=== PATIENT | male | born 1950 | race Caucasian/White ===

== ENCOUNTER → 2022-06-24 07:22 | Outpatient (CLI) | payer MEDICARE, SELFPAY ==
[2022-06-24 10:03] LABS: Alanine Aminotransferase 21 IU/L (<50); Albumin 3.9 g/dL (3.5-5.0); Albumin Globulin Ratio 1.5 (1.0-2.8); Alkaline Phosphatase 79 U/L (38-126); Aspartate Aminotransferase 24 IU/L (17-59); Bilirubin Total 1.2 mg/dL (0.2-1.3); Blood Urea Nitrogen 12 mg/dL (9-20); Calcium 8.6 mg/dL (8.4-10.2); Carbon Dioxide 28 mmol/L (22-32); Chloride 104 mmol/L (98-107); Cholesterol 143 mg/dL (140-199); Estimated Glomerular Filt Rate > 60 mL/min (>60); Globulin 2.6 g/dL (1.7-4.1); Glucose 92 mg/dL (80-110); HDL Cholesterol 36 mg/dL (40-60); HEMOLYSIS < 15 (0-50); LDL Cholesterol Calculated 84 mg/dL (<100); Potassium 3.7 mmol/L (3.4-5.1); Sodium 139 mmol/L (137-145); Total Protein 6.5 g/dL (6.3-8.2); Triglycerides 114 mg/dL (35-150)
[2022-06-24 10:26] LABS: Prostate Specific Antigen < 0.064 ng/mL (0.10-4.00)
[2022-06-24 10:29] LABS: Thyroid Stimulating Hormone 0.111 uIU/mL (0.47-4.68)
== END ==
PROVIDERS: PCP Family Medicine; Referring Provider Family Medicine; Visit Provider Family Medicine
DX: E78.5 Hyperlipidemia, unspecified (principal); I10 Essential (primary) hypertension; N40.0 Benign prostatic hyperplasia without lower urinary tract symptoms
CPT/HCPCS: 36415; 80053; 80061; 84153; 84439; 84443

== ENCOUNTER 2022-10-19 18:44 | Emergency (ER) | payer MEDICARE, SELFPAY ==
[2022-10-19 19:16] VITALS: BP 162/82; PULSE 65; RESP 16; TEMP 36.4; O2SAT 97; BMI 32.8
--- NOTE | 2022-10-19 19:29 | DI.US.S_ITS ---
PROCEDURE: US PERIPH VENOUS LOW EXTREM LT INDICATIONS: EDEMA TECHNIQUE: Real-time imaging, as well as color and pulse Doppler interrogation, were performed of the lower extremity deep veins from the inguinal ligament to the popliteal fossa. COMPARISON: None. FINDINGS: The common femoral, femoral and popliteal veins are normally compressible, and free of intraluminal thrombus. Color and pulse Doppler demonstrate normal phasic intraluminal flow. There is normal augmentation response to distal compression maneuver. IMPRESSION: 1. No evidence of deep venous thrombosis in the left lower extremity. Dictated by: Severino Pugh M.D. on 10/19/2022 at 20:02 Approved by: Severino Pugh M.D. on 10/19/2022 at 20:04
--- NOTE | 2022-10-19 20:23 | ED.EXTPRO ---
HPI - Extremity Problem General Chief complaint: Extremity Problem,Nontraumatic Stated complaint: sent by [facility]/swollen leg and foot Time Seen by Provider: 10/19/22 19:46 Source: patient Mode of arrival: Ambulatory History of Present Illness HPI Narrative: Patient is a 72-year-old male who was sent to the emergency department from the walk-in clinic for evaluation of swelling to his left leg. He denies any trauma. He is on warfarin secondary to cardiac issues. He states that he really did not notice that his leg was swollen until his pointed out to him a couple days ago. He denies chest pain or shortness of breath. Has never had a blood clot in his legs before. No discomfort in his leg. No skin changes in his leg. Related Data Home Medications Medication Instructions Recorded Confirmed cholecalciferol (vitamin D3) 50 50 mcg PO DAILY 06/21/22 06/21/22 mcg (2,000 unit) capsule magnesium oxide 250 mg PO DAILY 06/21/22 06/21/22 metoprolol succinate 100 mg 100 mg PO BID 06/21/22 06/21/22 tablet,extended release 24 hr aziptvro-duk-ebcuz-vit K-lycop PO 06/21/22 06/21/22 [One-A-Day Men's 50 Plus(vit K)] warfarin 5 mg tablet 5 mg PO 06/21/22 06/21/22 Previous Rx's Medication Instructions Recorded eplerenone 50 mg tablet 50 mg PO DAILY #90 tabs 06/27/22 levothyroxine 200 mcg tablet 200 mcg PO DAILY #90 tabs 06/27/22 levothyroxine 25 mcg tablet 25 mcg PO DAILY #90 tabs 06/27/22 tamsulosin 0.4 mg capsule 0.4 mg PO BEDTIME #90 caps 06/27/22 oxybutynin chloride 10 mg 10 mg PO DAILY #90 tabs 07/28/22 tablet,extended release 24 hr Allergies Allergy/AdvReac Type Severity Reaction Status Date / Time No Known Drug Allergies Allergy Unverified 06/21/22 11:08 Review of Systems Constitutional Constitutional: Reports system reviewed and no additional complaints, except as documented Cardiovascular Cardiovascular: Reports system reviewed and no additional complaints, except as documented Respiratory Respiratory: Reports system reviewed and no additional complaints, except as documented Musculoskeletal Musculoskeletal: Reports system reviewed and no additional complaints, except as documented Integumentary/Breasts Skin/Breast: Reports system reviewed and no additional complaints, except as documented Neurologic Neurologic: Reports system reviewed and no additional complaints, except as documented Patient History Medical History Anxiety (~1984) Atrial fibrillation (~2001) BPH (benign prostatic hyperplasia) Chicken pox (~1956) Deep vein thrombosis (~2001) Depression (~1984) Eczema (~1967) Hand cramps (~2021) Hearing loss (~2009) History of elevated PSA (~2008) History of squamous cell carcinoma History of thyroid cancer (~2001) Hypothyroidism Measles (~1957) Mumps (~1959) Sleep apnea (~2009) Vertigo (~2019) Wears glasses Surgical History (Updated 07/04/22 @ 20:07 by Kandy Li) Anesthesia H/O mitral valve repair (~2001) History of aortic valve repair (~2014) History of bariatric surgery (~07/30/17) History of hernia repair (~1970) History of lymph node excision (~05/06/18) History of prostate cancer (~2008) History of radical prostatectomy (~08/31/10) History of thyroidectomy (~05/03/02) Family History (Updated 07/04/22 @ 20:11 by Kandy Li) Father History of heart disease Hypertension Mother Breast cancer Stroke Sister Breast cancer Grandmother Breast cancer Grandfather Arteriosclerosis Grandmother History of heart disease Social History Smoking Status: Never smoker Smoking Status: Never smoker alcohol intake frequency: holidays/special occasions only Substance Use Type: does not use Exam Initial Vital Signs Initial Vital Signs: Vital Signs Temperature 97.6 F 10/19/22 19:16 Pulse Rate 65 10/19/22 19:16 Respiratory Rate 16 10/19/22 19:16 Blood Pressure 162/82 H 10/19/22 19:16 Pulse Oximetry 97 10/19/22 19:16 Oxygen Delivery Method Room Air 10/19/22 19:16 Resp Effort & Inspection: normal respiratory effort Cardio Rate: regular rate Skin General: no rashes or lesions noted Neuro General: patient alert, patient awake and moves all extremities Extrem Other: Patient does circumferential swelling to the left lower extremity that extends from the top of his foot until his knee. Potentially some swelling above the knee. No redness. It is not pitting edema. Course Orders Ordered: ED Orders 10/19/22 19:29 US periph venous low extrem lt Stat Vital Signs Vital signs: Vital Signs - 8 hr 10/19/22 19:16 Temperature 97.6 F Pulse Rate 65 Respiratory Rate 16 Blood Pressure 162/82 H Pulse Oximetry 97 Oxygen Delivery Method Room Air MDM - Extremity (Nontraumatic) Imaging Data US - DVT: Radiologist's Impression: PROCEDURE:? US PERIPH VENOUS LOW EXTREM LT ? INDICATIONS:? EDEMA ? TECHNIQUE:? Real-time imaging, as well as color and pulse Doppler interrogation, were performed of the lower extremity deep veins from the inguinal ligament to the popliteal fossa.? ? COMPARISON:? None. ? FINDINGS:? The common femoral, femoral and popliteal veins are normally compressible, and free of intraluminal thrombus.? Color and pulse Doppler demonstrate normal phasic intraluminal flow.? There is normal augmentation response to distal compression maneuver. ? ? IMPRESSION:? ? 1. No evidence of deep venous thrombosis in the left lower extremity. [facility] Narrative Medical decision making narrative: His physical exam is not consistent with cellulitis. He denies any specific trauma. Ultrasounds negative for DVT. He is currently on warfarin. He has no chest pain or shortness of breath. No further workup required in the emergency department. We did discuss things that he can try to include keeping his leg elevated potentially compression stockings and to contact his primary doctor for follow-up as he may need further evaluation if his symptoms do not improve. He was given return precautions. He expressed understanding and agreement. Discharge Plan Departure Patient Disposition: Home Clinical Impression: Peripheral edema, Atrial fibrillation Instructions: DI for Peripheral Edema-Unilateral Activity Restrictions/Additional Instructions: I do recommend that you try to keep your leg elevated. You can also try other conservative measures such as compression stockings. Contact your primary doctor for a follow-up. Return to the emergency department for new or worsening symptoms. Prescriptions: No Action levothyroxine 25 mcg tablet 25 mcg PO DAILY Qty: 90 2RF levothyroxine 200 mcg tablet 200 mcg PO DAILY Qty: 90 2RF tamsulosin 0.4 mg capsule 0.4 mg PO BEDTIME Qty: 90 2RF eplerenone 50 mg tablet 50 mg PO DAILY Qty: 90 2RF oxybutynin chloride 10 mg tablet extended release 24hr 10 mg PO DAILY Qty: 90 1RF warfarin 5 mg tablet 5 mg PO Rx Instructions: 2.5 mg x5 days a week and 5 mg x 2 days a week. metoprolol succinate 100 mg tablet extended release 24 hr 100 mg PO BID Patient Comments: TAKE 2 TABLETS BY MOUTH DAILY uefljjob-ris-zombu-vit K-lycop [One-A-Day Men's 50 Plus] PO cholecalciferol (vitamin D3) 50 mcg (2,000 unit) capsule 50 mcg PO DAILY magnesium oxide 250 mg magnesium tablet 250 mg PO DAILY Referrals: Fidel Emanuel, [Primary Care Provider] - Stand Alone Forms: Patient Portal/API
== END 2022-10-19 20:31 | disposition home or self-care (01) ==
PROVIDERS: Emergency Provider Emergency Medicine; PCP Family Medicine
DX: R60.0 Localized edema (principal); I48.91 Unspecified atrial fibrillation; Z79.01 Long term (current) use of anticoagulants
CPT/HCPCS: 93971; 99281; 99283

== ENCOUNTER → 2022-11-04 09:14 | Outpatient (CLI) | payer MEDICARE, SELFPAY ==
--- NOTE | 2022-11-04 | DI.ECHO.S_ITS ---
[facility] +---------+ : : [address] : : : : [id number] : : : : Phone: [phone]+ Echocardiogram Report + + :Name: LISETTE REINA Study Date: 11/04/2022 Height: 71 in : :[facility] ReadingLocation: Weight: 235 lb : : Gender: Male BSA: 2.3 m2 : :: 1950 Age: 72 yrs BP: 142/68 mmHg: :Reason For Study: Endocarditis : :Ordering Physician: CHICA, : :MARY Nolen Performed By: Anabell Gracia : :Referring: MARY BLEDSOE : + + Interpretation Summary The ejection fraction is estimated to be 55-60%. Diastolic function could not be accurately assessed due to confounding valvular disease. The left atrium is moderately dilated. The right ventricle is normal in size and function. There is a well-seated, normal functioning bioprosthetic mitral valve. There is trace aortic regurgitation. An annuloplasty ring is noted in the tricuspid position. Pulmonary artery pressures cannot be estimated because of the lack of a measurable TR jet velocity. The ascending aorta is mildly enlarged, 3.9 cm. Procedure: A two-dimensional transthoracic echocardiogram with color flow and Doppler was performed. The study quality was technically adequate. There is no prior echocardiogram noted for this patient. Left Ventricle: The left ventricle is normal in size. The ejection fraction is estimated to be 55-60%. Septal motion is consistent with post-operative state. Diastolic function could not be accurately assessed due to confounding valvular disease. Right Ventricle: The right ventricle is normal in size and function. Atria: The left atrium is moderately dilated. Right atrial size is normal. There is no Doppler evidence for an interatrial shunt. Mitral Valve: There is a bioprosthetic mitral valve. The prosthetic mitral valve is well-seated. The mitral valve mean gradient is 9 mmHg. Heart rate is variable due to underlying atrial flutter. There is no mitral regurgitation noted. Aortic Valve: The aortic valve is trileaflet. The aortic valve opens well. There is mild aortic valve sclerosis. There is no aortic valve stenosis. There is trace aortic regurgitation. Tricuspid Valve: The tricuspid valve is not well visualized. An annuloplasty ring is noted in the tricuspid position. There is trace tricuspid regurgitation. Pulmonary artery pressures cannot be estimated because of the lack of a measurable TR jet velocity. Pulmonic Valve: The pulmonic valve leaflets are thin and pliable; valve motion is normal. There is no pulmonic valvular stenosis. There is no pulmonic valvular regurgitation. Great Vessels: The aortic root is normal size. The ascending aorta is mildly enlarged. The pulmonary artery is normal size. The IVC is dilated (diameter is greater than 2.1 cm) and it collapses less than 50% with a sniff. This suggests a high right atrial pressure of 15 mm Hg. Pericardium/ Pleura There is no pericardial effusion. There is no pleural effusion. MMode/2D Measurements & Calculations LVIDd: 5.7 cm LVOT diam: 2.1 cm LVIDs: 3.5 cm Ao root diam: 3.4 cm FS: 38.6 % asc Aorta Diam: 3.9 cm IVSd: 1.0 cm LVPWd: 1.1 cm LV marques. diameter/BSA (cm/m^2): 2.5 LV sys. diameter/BSA (cm/m^2): 1.5 LA A2 area: 25.8 cm2 RA long axis: 6.2 cm LA A4 area: 24.5 cm2 RA area: 19.8 cm2 LA length (vol): 6.4 cm RA vol: 53.9 ml LA vol: 83.4 ml RA : 23.9 ml/m2 LA vol index: 36.9 ml/m2 IVC diam: 2.2 cm RVD1 (basal): 3.9 cm LVLs ap4: 7.2 cm LVLd ap2: 8.3 cm TAPSE_phl: 1.9 cm LVLs ap2: 7.1 cm Doppler Measurements & Calculations Ao V2 max: 148.0 cm/sec TR max christie: 213.0 cm/sec Ao V2 mean: 100.0 cm/sec TR max P.1 mmHg Ao max P.0 mmHg PA V2 max: 102.0 cm/sec Ao mean P.0 mmHg PA V2 mean: 72.3 cm/sec Ao V2 VTI: 31.4 cm PA mean P.0 mmHg PA pr(Accel): 20.9 mmHg MV V2 mean: 131.3 cm/sec TV mean P.0 mmHg MV mean P.3 mmHg MV V2 VTI: 69.8 cm Reading Physician:03:10 PM
== END ==
PROVIDERS: PCP Family Medicine; Referring Provider Internal Medicine Cardiovascular Disease; Visit Provider Internal Medicine Cardiovascular Disease
DX: Z95.2 Presence of prosthetic heart valve; I35.8 Other nonrheumatic aortic valve disorders; I77.89 Other specified disorders of arteries and arterioles
CPT/HCPCS: 93306

== ENCOUNTER 2023-01-23 22:18 | Emergency (ER) | payer MEDICARE, SELFPAY ==
--- NOTE | 2023-01-23 22:19 | ED.GENADULT ---
HPI - General Adult General Chief complaint: Upper Respiratory Symptoms Stated complaint: covid exposure/would like testing Time Seen by Provider: 01/23/23 22:19 History of Present Illness HPI narrative: 72-year-old male nonsmoker with history of hypothyroid, aortic valve replacement presents requesting to be tested for COVID. He denies any symptoms, specifically stating he has no headache, runny nose or sore throat. He has no chest pain, shortness of breath or cough. He denies any fatigue or body aches. He states that he has been with his daily and she has been hospitalized with both COVID and bacterial pneumonia, he wanted to be checked to make sure he does not have COVID himself. Related Data Home Medications Medication Instructions Recorded Confirmed cholecalciferol (vitamin D3) 50 50 mcg PO DAILY 06/21/22 11/28/22 mcg (2,000 unit) capsule magnesium oxide 250 mg PO DAILY 06/21/22 11/28/22 metoprolol succinate 100 mg 100 mg PO BID 06/21/22 11/28/22 tablet,extended release 24 hr luchraot-amf-rbful-vit K-lycop PO 06/21/22 11/28/22 [One-A-Day Men's 50 Plus(vit K)] warfarin 5 mg tablet 2.5 mg PO for heart 11/29/22 Previous Rx's Medication Instructions Recorded eplerenone 50 mg tablet 50 mg PO DAILY #90 tabs 06/27/22 oxybutynin chloride 10 mg 10 mg PO DAILY #90 tabs 12/02/22 tablet,extended release 24 hr levothyroxine 200 mcg tablet 200 mcg PO DAILY #90 tabs 12/26/22 levothyroxine 25 mcg tablet 25 mcg PO DAILY #90 tabs 12/26/22 tamsulosin 0.4 mg capsule 0.4 mg PO BEDTIME #90 caps 12/26/22 nirmatrelvir 300 mg (150 mg See Rx Instructions PO .COMPLEX 01/07/23 x2)-ritonavir 100 mg tablet,dose #30 ea pack (Paxlovid) Allergies Allergy/AdvReac Type Severity Reaction Status Date / Time No Known Drug Allergies Allergy Unverified 11/28/22 16:23 Review of Systems Review of Systems Narrative: GENERAL: Denies chills, fatigue, malaise, fever, sweats. HEENT: Denies sinus pain, ear pain, sore throat, difficulty swallowing, dizziness. RESPIRATORY: Denies dyspnea, cough, wheezing, hemoptysis, sputum. CARDIOVASCULAR: Denies chest pain, palpitations, orthopnea, edema, GASTROINTESTINAL: Denies nausea, vomiting, abdominal pain, diarrhea, constipation, melena. : Denies dysuria, frequency, incontinence, hematuria, urinary retention. MUSCULOSKELETAL: denies weakness, joint pain, or bony pain SKIN: Denies rash, skin lesions, or other NEUROLOGIC: Denies weakness, headache, numbness, change in speech, confusion, seizures, incoordination. PSYCHIATRIC: No concerning psychosocial issues. 12 point review of systems is negative except for those stated above Patient History Medical History Anxiety (~1984) Atrial fibrillation (~2001) BPH (benign prostatic hyperplasia) Chicken pox (~1956) Deep vein thrombosis (~2001) Depression (~1984) Eczema (~1967) Hand cramps (~2021) Hearing loss (~2009) History of elevated PSA (~2008) History of squamous cell carcinoma History of thyroid cancer (~2001) Hypothyroidism Measles (~1957) Mumps (~1959) Preventative health care Sleep apnea (~2009) Vertigo (~2019) Wears glasses Surgical History Anesthesia H/O mitral valve repair (~2001) History of aortic valve repair (~2014) History of bariatric surgery (~07/30/17) History of hernia repair (~1970) History of lymph node excision (~05/06/18) History of prostate cancer (~2008) History of radical prostatectomy (~08/31/10) History of thyroidectomy (~05/03/02) Family History Father History of heart disease Hypertension Mother Breast cancer Stroke Sister Breast cancer Grandmother Breast cancer Grandfather Arteriosclerosis Grandmother History of heart disease Social History Smoking Status: Never smoker Smoking Status: Never smoker alcohol intake frequency: holidays/special occasions only Substance Use Type: does not use Exam Narrative Exam Narrative: GEN: AOx3 and in mild distress EYES: Pupils are equal, round, and reactive to light and accommodation. Extraoccular muscles are intact bilaterally. There is no subconjunctival hemorrhage or exudate. CHEST: Lungs are clear to auscultation bilaterally and free of wheezes, rales, or rhonchi. Heart rate is regular rhythm, there are no murmurs, clicks, rubs, or gallops. There is no chest wall tenderness. ABD: Abdomen is soft and nontender. There is no guarding or rebound. Bowel sounds are normal in all 4 quadrants. There is no mass or organomegaly. EXT: Full painless ROM of all extremities with no loss of sensation or strength. SKIN: Warm, pink, and dry. No erythema or rash Initial Vital Signs Initial Vital Signs: Vital Signs Temperature 98.6 F 01/23/23 22:23 Pulse Rate 71 01/23/23 22:23 Respiratory Rate 18 01/23/23 22:23 Blood Pressure 157/93 H 01/23/23 22:23 Pulse Oximetry 98 01/23/23 22:23 Oxygen Delivery Method Room Air 01/23/23 22:23 Course Orders Ordered: ED Orders 01/23/23 22:32 COVID19 -Nasal RAPID Stat Vital Signs Vital signs: Vital Signs - 8 hr 01/23/23 22:23 Temperature 98.6 F Pulse Rate 71 Respiratory Rate 18 Blood Pressure 157/93 H Pulse Oximetry 98 Oxygen Delivery Method Room Air Medical Decision Making Lab Data Labs: Lab Results 01/23/23 Range/Units 22:32 SARS-CoV-2 (PCR) Negative (Negative) MDM Narrative Medical decision making narrative: [72] year old patient presents with request for COVID test Prior Charts reviewed in our EMR Primary Historian: patient Labs reviewed and interpreted by myself: COVID negative Patient with reassuring history and physical exam and is asymptomatic, requesting only a COVID test due to his exposure to a person who was known to be positive. He has been around her for days on end and has no symptoms and a negative test. No further investigation needed Findings and discharge diagnosis discussed with patient/family followed by verbalization of understanding Return precautions discussed with patient/family whom verbalize understanding of diagnosis and plan Discharge Plan Departure Patient Disposition: Home Clinical Impression: Feared complaint without diagnosis Instructions: COVID-19 Activity Restrictions/Additional Instructions: *You have been diagnosed with [NEGATIVE COVID TEST ] *What to do: *Please continue to take your regular medications as directed. [ ] New medication prescriptions sent to your pharmacy: [ ] [ ] New medication written as a paper prescription [ ] No new medications given *Please follow up with your primary care provider in 2-3 days, call for an appointment. Let them know you were seen in the Emergency Department and that we ask that you be seen in follow up. We will electronically transmit a record of today's note if your PCP is in our system *If you do not have a primary care provider please contact the [facility] Resource line at [phone]. They will ask some questions about your medical history and help get you set up with a doctor in the community. *Return to Emergency Department if you should have any new, worsening or concerning symptoms, such as [fever greater than 101 F, shaking chills, worsening pain, persistent vomiting or other bothersome symptoms] Prescriptions: No Action eplerenone 50 mg tablet 50 mg PO DAILY Qty: 90 2RF warfarin 5 mg tablet 2.5 mg PO Patient Comments: 2.5 mg for five days a week, and 3.75 mg for two days a week. oxybutynin chloride 10 mg tablet extended release 24hr 10 mg PO DAILY Qty: 90 3RF levothyroxine 25 mcg tablet 25 mcg PO DAILY Qty: 90 2RF tamsulosin 0.4 mg capsule 0.4 mg PO BEDTIME Qty: 90 2RF levothyroxine 200 mcg tablet 200 mcg PO DAILY Qty: 90 2RF Paxlovid 300 mg (150 mg x 2)-100 mg tablets,dose pack See Rx Instructions PO .COMPLEX Qty: 30 0RF Rx Instructions: take TWO 150 mg tablets of nirmatrelvir with ONE 100 mg tablet of ritonavir twice daily for 5 days PO metoprolol succinate 100 mg tablet extended release 24 hr 100 mg PO BID Patient Comments: TAKE 2 TABLETS BY MOUTH DAILY vrnjiiyf-uqb-nevuj-vit K-lycop [One-A-Day Men's 50 Plus] PO cholecalciferol (vitamin D3) 50 mcg (2,000 unit) capsule 50 mcg PO DAILY magnesium oxide 250 mg magnesium tablet 250 mg PO DAILY Referrals: Fidel Emanuel, [Primary Care Provider] - Stand Alone Forms: Patient Portal/API
[2023-01-23 22:23] VITALS: BP 157/93; PULSE 71; RESP 18; TEMP 37; O2SAT 98; BMI 32.8
[2023-01-23 23:11] LABS: COVID19 -Nasal RAPID Negative (Negative)
== END 2023-01-23 23:26 | disposition home or self-care (01) ==
PROVIDERS: Emergency Provider Emergency Medicine; PCP Family Medicine
DX: Z20.822 Contact with and (suspected) exposure to COVID-19 (principal)
CPT/HCPCS: 87635; 99281; 99282; C9803

== ENCOUNTER → 2023-04-27 07:31 | Outpatient (CLI) | payer MEDICARE, SELFPAY ==
[2023-04-27 08:10] LABS: Add Manual Diff / Slide Review NO; Basophils Absolute Auto 0 /uL (0-100); Basophils Percent Auto 0.5 % (0-2); Eosinophils Absolute Auto 100 /uL (0-450); Eosinophils Percent Auto 1.8 % (2-4); Hematocrit 42.5 % (41-53); Hemoglobin 14.7 g/dL (13.5-17.5); Lymphocytes Absolute Auto 1100 /uL (1100-4500); Lymphocytes Percent Auto 19.5 % (25-40); Mean Corpuscular HGB Conc 34.6 % (30-36); Mean Corpuscular Hemoglobin 29.8 PG (26-34); Mean Corpuscular Volume 86.2 fL (80-100); Monocytes Absolute Auto 400 /uL (0-900); Monocytes Percent Auto 7.8 % (3-14); Neutrophils Absolute Auto 4000 /uL (1500-7000); Neutrophils Percent Auto 70.4 % (50-75); Platelet Count 115 X10^3/uL (150-400); Red Blood Cell Count 4.93 X10^6/uL (4.5-5.9); White Blood Cell Count 5.7 X10^3/uL (4.5-11.0)
[2023-04-27 08:29] LABS: Alanine Aminotransferase 19 IU/L (<50); Albumin 3.7 g/dL (3.5-5.0); Albumin Globulin Ratio 1.4 (1.0-2.8); Alkaline Phosphatase 78 U/L (38-126); Aspartate Aminotransferase 22 IU/L (17-59); BUN Creatinine Ratio 13.6 (6-22); Bilirubin Total 1.2 mg/dL (0.2-1.3); Blood Urea Nitrogen 9 mg/dL (9-20); Calcium 8.9 mg/dL (8.4-10.2); Carbon Dioxide 25 mmol/L (22-32); Chloride 106 mmol/L (98-107); Estimated Glomerular Filt Rate > 60 mL/min (>60); Globulin 2.6 g/dL (1.7-4.1); Glucose 98 mg/dL (80-110); HEMOLYSIS < 15 (0-50); Potassium 3.8 mmol/L (3.4-5.1); Sodium 139 mmol/L (137-145); Total Protein 6.3 g/dL (6.3-8.2)
[2023-04-27 08:57] LABS: Thyroid Stimulating Hormone < 0.015 uIU/mL (0.47-4.68)
== END ==
PROVIDERS: PCP Family Medicine; Referring Provider Family Medicine; Visit Provider Family Medicine
DX: I48.91 Unspecified atrial fibrillation (principal); Z85.850 Personal history of malignant neoplasm of thyroid; Z85.46 Personal history of malignant neoplasm of prostate
CPT/HCPCS: 36415; 80053; 84439; 84443; 85025

== ENCOUNTER → 2023-05-22 14:44 | Outpatient (CLI) | payer MEDICARE, SELFPAY ==
[2023-05-22 15:54] LABS: BUN Creatinine Ratio 14.3 (6-22); Blood Urea Nitrogen 10 mg/dL (9-20); Calcium 8.7 mg/dL (8.4-10.2); Carbon Dioxide 27 mmol/L (22-32); Chloride 104 mmol/L (98-107); Estimated Glomerular Filt Rate > 60 mL/min (>60); Glucose 109 mg/dL (80-110); HEMOLYSIS < 15 (0-50); Potassium 3.9 mmol/L (3.4-5.1); Sodium 141 mmol/L (137-145)
== END ==
PROVIDERS: PCP Family Medicine; Referring Provider Internal Medicine Cardiovascular Disease; Visit Provider Internal Medicine Cardiovascular Disease
DX: I10 Essential (primary) hypertension (principal)
CPT/HCPCS: 36415; 80048; 83735

== ENCOUNTER → 2023-07-31 09:19 | Outpatient (CLI) | payer MEDICARE, SELFPAY ==
[2023-07-31 10:55] LABS: Add Manual Diff / Slide Review NO; Basophils Absolute Auto 0 /uL (0-100); Basophils Percent Auto 0.4 % (0-2); Eosinophils Absolute Auto 100 /uL (0-450); Eosinophils Percent Auto 1.6 % (2-4); Hematocrit 42.4 % (41-53); Hemoglobin 14.8 g/dL (13.5-17.5); Lymphocytes Absolute Auto 1200 /uL (1100-4500); Mean Corpuscular HGB Conc 34.8 % (30-36); Mean Corpuscular Hemoglobin 29.7 PG (26-34); Mean Corpuscular Volume 85.3 fL (80-100); Monocytes Absolute Auto 500 /uL (0-900); Monocytes Percent Auto 8.7 % (3-14); Neutrophils Absolute Auto 4400 /uL (1500-7000); Neutrophils Percent Auto 70.3 % (50-75); Platelet Count 139 X10^3/uL (150-400); Red Blood Cell Count 4.97 X10^6/uL (4.5-5.9); Red Cell Distribution Width 14.2 % (11.6-14.8); White Blood Cell Count 6.3 X10^3/uL (4.5-11.0)
[2023-07-31 11:07] LABS: INR 3.2 (0.9-1.3); Prothrombin Time 37.3 SECONDS (9.4-12.5)
[2023-07-31 11:28] LABS: Alanine Aminotransferase 19 IU/L (<50); Albumin 4.1 g/dL (3.5-5.0); Albumin Globulin Ratio 1.6 (1.0-2.8); Alkaline Phosphatase 82 U/L (38-126); Aspartate Aminotransferase 23 IU/L (17-59); BUN Creatinine Ratio 18.9 (6-22); Blood Urea Nitrogen 14 mg/dL (9-20); Calcium 8.8 mg/dL (8.4-10.2); Carbon Dioxide 27 mmol/L (22-32); Chloride 108 mmol/L (98-107); Estimated Glomerular Filt Rate > 60 mL/min (>60); Globulin 2.6 g/dL (1.7-4.1); Glucose 113 mg/dL (80-110); HEMOLYSIS < 15 (0-50); Potassium 3.8 mmol/L (3.4-5.1); Sodium 138 mmol/L (137-145); Total Protein 6.7 g/dL (6.3-8.2)
[2023-07-31 11:33] LABS: Free T4, Direct Thyroxine 2.31 ng/dL (0.78-2.19)
[2023-07-31 11:48] LABS: Thyroid Stimulating Hormone < 0.015 uIU/mL (0.47-4.68)
== END ==
PROVIDERS: PCP Family Medicine; Referring Provider Family Medicine; Visit Provider Family Medicine
DX: Z01.812 Encounter for preprocedural laboratory examination (principal); I48.91 Unspecified atrial fibrillation; E03.9 Hypothyroidism, unspecified
CPT/HCPCS: 36415; 80053; 84439; 84443; 85025; 85610

== ENCOUNTER 2023-12-20 15:04 | Emergency (ER) | payer MEDICARE, SELFPAY ==
[2023-12-20 15:19] VITALS: BP 162/78; PULSE 85; RESP 16; TEMP 37.1; O2SAT 95; BMI 46.3
--- NOTE | 2023-12-20 15:24 | DI.CT.S_ITS ---
PROCEDURE: CT CERVICAL SPINE WO CON INDICATIONS: fall hit face head on thinners TECHNIQUE: Noncontrast 3 mm thick sections acquired from the skull base to the T4 level. Sagittal and coronal reformats were then constructed. For radiation dose reduction, the following was used: automated exposure control, adjustment of mA and/or kV according to patient size. COMPARISON: None. FINDINGS: Image quality: Excellent. Bones: No fractures or dislocations. Visualized superior ribs are intact. Cervical spondylosis. Disc osteophyte complex causes canal stenosis at C4-C5, and C5-C6. There is multilevel significant bony foraminal narrowing. Soft tissues: Prevertebral soft tissues are normal in thickness. No paravertebral hematomas. No apical pneumothoraces. Size right superior mediastinal lymph node, to the right of the esophagus is borderline abnormally enlarged, measuring 2.0 x 1.8 cm. Shotty bilateral cervical adenopathy. IMPRESSION: 1. No acute cervical fracture or dislocation. 2. Cervical spondylosis with canal stenosis and foraminal stenosis. 3. Borderline abnormally enlarged right superior mediastinal lymph node, nonspecific. Dictated by: Preston Guthrie M.D. on 12/20/2023 at 16:03 Approved by: Preston Guthrie M.D. on 12/20/2023 at 16:06
--- NOTE | 2023-12-20 15:24 | DI.CT.S_ITS ---
PROCEDURE: CT HEAD/BRAIN WO CON INDICATIONS: fall hit face head on thinners TECHNIQUE: Noncontrast 4.5 mm thick angled axial sections acquired from the foramen magnum to the vertex, with coronal and sagittal reformats. For radiation dose reduction, the following was used: automated exposure control, adjustment of mA and/or kV according to patient size. COMPARISON: None. FINDINGS: Image quality: Diagnostic. CSF spaces: Basal cisterns are patent. No extra-axial fluid collections. The ventricles are symmetric in size and shape. Brain: No intracranial bleeds or masses. There is cerebral volume loss for age, with resultant ventricular and sulcal prominence. There are periventricular and deep white matter chronic small vessel ischemic changes. There is intracranial internal carotid artery atherosclerosis. Skull and face: Calvarium and visualized facial bones appear intact, without suspicious lesions. Sinuses: Small air-fluid level, right maxillary sinus. Right maxillary sinus mucous retention cyst. IMPRESSION: 1. No acute intracranial pathology. 2. Acute right maxillary sinus disease. Dictated by: Preston Guthrie M.D. on 12/20/2023 at 16:01 Approved by: Preston Guthrie M.D. on 12/20/2023 at 16:03
--- NOTE | 2023-12-20 16:53 | ED.FALL ---
HPI - Fall <Jenae Jansen PA-C - Last Filed: 12/20/23 17:20> General Chief Complaint: Fall Stated Complaint: fell face 1st on concrete, on thinners Time Seen by Provider: 12/20/23 16:17 History of Present Illness HPI Narrative: Patient is a very pleasant 73-year-old male presents to the emergency room department today with complaints of facial pain, nose pain, left hand abrasion, right palmar abrasion, after falling off of the back of a trailer. Patient was attempting to strap down a Organ that he had just received from friend. He took a step lost his balance and ended up falling face down onto the cement. He put his right hand out to stop him, he sustained an abrasion to the palmar aspect of his right hand abrasion to the medial aspect 5th metacarpal and phalanx. He also sustained a abrasion across the nose and in between his eyebrows. There was no loss of consciousness. He did not break his glasses. He washed all the wounds prior to being seen here in the emergency department. Does not currently have any discomfort or pain. However the patient is currently on warfarin and presented to the emergency department for further evaluation since being on blood thinners. Related Data Home Medications Medication Instructions Recorded Confirmed cholecalciferol (vitamin D3) 50 50 mcg PO DAILY 06/21/22 11/10/23 mcg (2,000 unit) capsule tlmzzagu-ift-zrbqp-vit K-lycop PO 06/21/22 08/18/23 [One-A-Day Men's 50 Plus(vit K)] eplerenone 50 mg tablet 100 mg PO DAILY 11/10/23 metoprolol succinate 100 mg 100 mg PO DAILY 11/10/23 tablet,extended release 24 hr oxybutynin chloride 10 mg 5 mg PO DAILY 11/10/23 tablet,extended release 24 hr warfarin 2.5 mg tablet mg PO 11/10/23 11/10/23 Previous Rx's Medication Instructions Recorded tamsulosin 0.4 mg capsule 0.4 mg PO BEDTIME #90 caps 12/26/22 levothyroxine 200 mcg tablet 200 mcg PO DAILY #90 tabs 12/07/23 levothyroxine 25 mcg tablet 25 mcg PO DAILY #90 tabs 12/07/23 Allergies Allergy/AdvReac Type Severity Reaction Status Date / Time No Known Drug Allergies Allergy Unverified 11/10/23 11:33 Review of Systems <Jenae Jansen PA-C - Last Filed: 12/20/23 17:20> Review of Systems Narrative: Negative except as above Integumentary/Breasts Comments: Multiple skin abrasions 1 to the right palmar aspect of his hand, 1 along the medial aspect left hand along the 5th phalanx and middle carpals. And left wrist. And to the bridge of his nose and in between his eyebrows. Patient History <Jenae Jansen PA-C - Last Filed: 12/20/23 17:20> Medical History Leg edema Pre-diabetes Preoperative clearance Thrombocytopenia Preventative health care Wears glasses Eczema (~1967) Sleep apnea (~2009) Depression (~1984) Anxiety (~1984) Hand cramps (~2021) Mumps (~1959) Measles (~1957) Chicken pox (~1956) Vertigo (~2019) Hearing loss (~2009) History of elevated PSA (~2008) Deep vein thrombosis (~2001) Atrial fibrillation (~2001) History of thyroid cancer (~2001) History of squamous cell carcinoma BPH (benign prostatic hyperplasia) Hypothyroidism Surgical History Anesthesia History of lymph node excision (~05/06/18) History of radical prostatectomy (~08/31/10) History of thyroidectomy (~05/03/02) History of hernia repair (~1970) History of bariatric surgery (~07/30/17) History of prostate cancer (~2008) History of aortic valve repair (~2014) H/O mitral valve repair (~2001) Family History Father History of heart disease Hypertension Mother Breast cancer Stroke Sister Breast cancer Grandmother Breast cancer Grandfather Arteriosclerosis Grandmother History of heart disease Social History Smoking Status: Never smoker Smoking Status: Never smoker alcohol intake frequency: holidays/special occasions only Substance Use Type: does not use Exam <Jenae Jansen PA-C - Last Filed: 12/20/23 17:20> Initial Vital Signs Initial Vital Signs: Vital Signs Temperature 98.7 F 12/20/23 15:19 Pulse Rate 85 12/20/23 15:19 Respiratory Rate 16 12/20/23 15:19 Blood Pressure 162/78 H 12/20/23 15:19 Pulse Oximetry 95 12/20/23 15:19 Oxygen Delivery Method Room Air 12/20/23 15:19 Reviewed. Const General: cooperative, healthy appearing, comfortable, well developed, well groomed, No acute distress and No in distress Nutritional Appearance: average body habitus and well nourished [facility] Head: normal to inspection and normocephalic Face and sinus: abrasion (Abrasion to the bridge of the nose and in between his eyebrows.) Eyes General: Yes appearance normal, both eyes and all related structures Eyelids: eyelids normal Pupils: PERRL EOM: EOM intact bilaterally Neck Neck: normal visual inspection and full ROM Skin Other: Patient has an abrasion in between his eyebrows, abrasion on the bridge of his nose, mild soft tissue swelling to the bridge of his nose. He has an abrasion on the palmar aspect of his right hand, an abrasion to the left medial aspect of the hand and wrist area. Patient does not have any decreased range of motion, pulses are present, cap refill is preserved. He has no physical complaints of pain or discomfort. Neuro General: patient alert, patient awake, patient oriented x3 and gait normal Cognition: normal cognition Speech: speech normal Gait: normal gait Motor: muscle tone normal throughout Extrem Other: Range of motion, strength, pulses, cap refill preserved in the upper and lower extremities bilaterally. Psych Appearance: grossly normal and well kempt Mental Status: mental status grossly normal Speech and Movement: speech and movement normal Mood: congruent mood Affect: normal affect Attitude: cooperative Thought Process: normal Thought Content: normal Judgment: judgment good <Marilynn Ortega DO - Last Filed: 12/20/23 18:14> Initial Vital Signs Initial Vital Signs: Vital Signs Temperature 98.7 F 12/20/23 15:19 Pulse Rate 85 12/20/23 15:19 Respiratory Rate 16 12/20/23 15:19 Blood Pressure 162/78 H 12/20/23 15:19 Pulse Oximetry 95 12/20/23 15:19 Oxygen Delivery Method Room Air 12/20/23 15:19 Course <Jenae Jansen PA-C - Last Filed: 12/20/23 17:20> Orders Ordered: ED Orders 12/20/23 15:24 CT cervical spine wo con Stat CT head/brain wo con Stat Vital Signs Vital signs: Vital Signs - 8 hr 12/20/23 15:19 12/20/23 17:23 Temperature 98.7 F Pulse Rate 85 77 Respiratory Rate 16 18 Blood Pressure 162/78 H 139/78 Pulse Oximetry 95 95 Oxygen Delivery Method Room Air Room Air Reviewed <Marilynn Ortega DO - Last Filed: 12/20/23 18:14> Orders Ordered: ED Orders 12/20/23 15:24 CT cervical spine wo con Stat CT head/brain wo con Stat Vital Signs Vital signs: Vital Signs - 8 hr 12/20/23 15:19 12/20/23 17:23 Temperature 98.7 F Pulse Rate 85 77 Respiratory Rate 16 18 Blood Pressure 162/78 H 139/78 Pulse Oximetry 95 95 Oxygen Delivery Method Room Air Room Air MDM - Fall <Jenae Jansen PA-C - Last Filed: 12/20/23 17:20> Imaging Data CT - cervical spine: Radiologist's Impression: [place] [address] CT Scan Report Signed Patient: German Araujo MR#: [id number] : 1950 Acct:[id number] Age/Sex: 73 / M Date of Service: 12/20/23 Loc: ED Accession Number: [id number] Procedure: CT cervical spine wo con Ordering Provider: Marilynn Ortega D.O. PROCEDURE: CT CERVICAL SPINE WO CON INDICATIONS: fall hit face head on thinners TECHNIQUE: Noncontrast 3 mm thick sections acquired from the skull base to the T4 level. Sagittal and coronal reformats were then constructed. For radiation dose reduction, the following was used: automated exposure control, adjustment of mA and/or kV according to patient size. COMPARISON: None. FINDINGS: Image quality: Excellent. Bones: No fractures or dislocations. Visualized superior ribs are intact. Cervical spondylosis. Disc osteophyte complex causes canal stenosis at C4-C5, and C5-C6. There is multilevel significant bony foraminal narrowing. Soft tissues: Prevertebral soft tissues are normal in thickness. No paravertebral hematomas. No apical pneumothoraces. Size right superior mediastinal lymph node, to the right of the esophagus is borderline abnormally enlarged, measuring 2.0 x 1.8 cm. Shotty bilateral cervical adenopathy. IMPRESSION: 1. No acute cervical fracture or dislocation. 2. Cervical spondylosis with canal stenosis and foraminal stenosis. 3. Borderline abnormally enlarged right superior mediastinal lymph node, nonspecific. Dictated by: Preston Guthrie M.D. on 12/20/2023 at 16:03 Approved by: Preston Guthrie M.D. on 12/20/2023 at 16:06 CT scan - head: Radiologist's Impression: [address] [address] [address] Scan Report Signed Patient: German Araujo MR#: [id number] : 1950 Acct:[id number] Age/Sex: 73 / M Date of Service: 12/20/23 Loc: ED Accession Number: [id number] Procedure: CT head/brain wo con Ordering Provider: Marilynn Ortega D.O. PROCEDURE: CT HEAD/BRAIN WO CON INDICATIONS: fall hit face head on thinners TECHNIQUE: Noncontrast 4.5 mm thick angled axial sections acquired from the foramen magnum to the vertex, with coronal and sagittal reformats. For radiation dose reduction, the following was used: automated exposure control, adjustment of mA and/or kV according to patient size. COMPARISON: None. FINDINGS: Image quality: Diagnostic. CSF spaces: Basal cisterns are patent. No extra-axial fluid collections. The ventricles are symmetric in size and shape. Brain: No intracranial bleeds or masses. There is cerebral volume loss for age, with resultant ventricular and sulcal prominence. There are periventricular and deep white matter chronic small vessel ischemic changes. There is intracranial internal carotid artery atherosclerosis. Skull and face: Calvarium and visualized facial bones appear intact, without suspicious lesions. Sinuses: Small air-fluid level, right maxillary sinus. Right maxillary sinus mucous retention cyst. IMPRESSION: 1. No acute intracranial pathology. 2. Acute right maxillary sinus disease. Dictated by: Preston Guthrie M.D. on 12/20/2023 at 16:01 Approved by: Preston Guthrie M.D. on 12/20/2023 at 16:03 [facility] Narrative Medical decision making narrative: Pleasant 73-year-old male presents to the emergency room department with abrasions to the bridge of his nose, in between his eyebrows, right palmar aspect of his hand, left medial aspect of his left hand, after a fall that he sustained off of a low trailer. No loss of consciousness. Presented to the emergency department because he is currently on blood thinners. Patient does not currently have any discomfort or pain. Cleaned his wounds prior to being seen in the emergency department. CT of the neck is negative for any acute findings. CT of the head is negative for any acute findings. Patient discharged in stable condition. Differential diagnosis; fall, facial abrasions, hand abrasions, contusion to the face, musculoskeletal pain. Supportive therapy education, ED precautions. Discharge Plan Departure Patient Disposition: Home Clinical Impression: Fall Qualifiers: Encounter type: initial encounter Qualified Code(s): W19.XXXA - Unspecified fall, initial encounter Abrasion of face and extremities Qualifiers: Encounter type: initial encounter Laterality: right Qualified Code(s): S00.81XA - Abrasion of other part of head, initial encounter Contusion of face Qualifiers: Encounter type: initial encounter Qualified Code(s): S00.83XA - Contusion of other part of head, initial encounter Activity Restrictions/Additional Instructions: Can take Tylenol with warfarin. Ice to the face. Your CT scans of the head and neck are negative for any acute findings. Please follow up with your primary care doctor. Return to the emergency department as needed. Prescriptions: No Action tamsulosin 0.4 mg capsule 0.4 mg PO BEDTIME Qty: 90 2RF levothyroxine 25 mcg tablet 25 mcg PO DAILY Qty: 90 1RF levothyroxine 200 mcg tablet 200 mcg PO DAILY Qty: 90 2RF lhdtzmaw-nlv-dqata-vit K-lycop [One-A-Day Men's 50 Plus] PO cholecalciferol (vitamin D3) 50 mcg (2,000 unit) capsule 50 mcg PO DAILY warfarin 2.5 mg tablet PO Rx Instructions: 1.5 tablets (3.75 mg) on Mondays and 1 tablet (2.5 mg) all other days directed by Cardiology eplerenone 50 mg tablet 100 mg PO DAILY metoprolol succinate 100 mg tablet extended release 24 hr 100 mg PO DAILY oxybutynin chloride 10 mg tablet extended release 24hr 5 mg PO DAILY Referrals: Fidel Emanuel DO [Primary Care Provider] - Stand Alone Forms: Patient Portal/API ED Sign-out <Marilynn Ortega DO - Last Filed: 12/20/23 18:14> Cosign ED Attending Cosignature Attestation: I was immediately available in the department for consultation.
[2023-12-20 17:23] VITALS: BP 139/78; PULSE 77; RESP 18; O2SAT 95
== END 2023-12-20 17:24 | disposition home or self-care (01) ==
PROVIDERS: Emergency Provider Physician Assistant; PCP Family Medicine
DX: S00.81XA Abrasion of other part of head, initial encounter (principal); S00.83XA Contusion of other part of head, initial encounter; S60.512A Abrasion of left hand, initial encounter; S60.511A Abrasion of right hand, initial encounter; W18.30XA Fall on same level, unspecified, initial encounter; Z79.01 Long term (current) use of anticoagulants
CPT/HCPCS: 70450; 72125; 99281

== ENCOUNTER 2023-12-20 19:19 | Emergency (ER) | payer MEDICARE, SELFPAY ==
[2023-12-20 19:26] VITALS: BP 132/82; PULSE 62; RESP 16; TEMP 37.2; O2SAT 98; BMI 34.4
--- NOTE | 2023-12-20 19:32 | DI.RAD.S_ITS ---
PROCEDURE: XR WRIST LT MIN 3V INDICATIONS: fall with swelling and bruising to left wrist TECHNIQUE: 4 views of the wrist were acquired. COMPARISON: None. FINDINGS: Diffuse osseous demineralization, which limits the sensitivity for fracture detection and fracture acuity. Soft tissue edema around the volar-radial aspect of the wrist along with minimal irregularity of the radial lip. Otherwise, no other acute fracture or dislocation. Vascular calcifications. 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 IMPRESSION: Possible, minimally displaced distal radial metaphyseal fracture with intra-articular extension and associated soft tissue edema. Follow-up radiographs in 10-14 days could confirm this finding. Dictated by: Wagner Navas M.D. on 12/20/2023 at 19:55 Approved by: Wagner Navas M.D. on 12/20/2023 at 19:58
--- NOTE | 2023-12-20 20:50 | ED.RECABL ---
HPI - Recheck/Abnormal Lab/Rx General Chief Complaint: Recheck/Abnormal Lab/Rx Stated Complaint: Returning; Saúl Moraels Wrist looked at after GLF Time Seen by Provider: 12/20/23 20:50 Source: patient Mode of arrival: Ambulatory History of Present Illness HPI narrative: 73-year-old gentleman who fell off a trailer earlier today was seen earlier today with facial pain abrasions left hand abrasion right palmar abrasion. CT scan of the head was unremarkable. He had normal and unrestricted movement in all joints reassurance was given and he was discharged. Once home his left wrist was becoming increasingly swollen any comes in for further evaluation. He has not noticing dramatic pain at any of the sites of injury today. Related Data Home Medications Medication Instructions Recorded Confirmed cholecalciferol (vitamin D3) 50 50 mcg PO DAILY 06/21/22 11/10/23 mcg (2,000 unit) capsule ggunounw-otn-uaxgy-vit K-lycop PO 06/21/22 08/18/23 [One-A-Day Men's 50 Plus(vit K)] eplerenone 50 mg tablet 100 mg PO DAILY 11/10/23 metoprolol succinate 100 mg 100 mg PO DAILY 11/10/23 tablet,extended release 24 hr oxybutynin chloride 10 mg 5 mg PO DAILY 11/10/23 tablet,extended release 24 hr warfarin 2.5 mg tablet mg PO 11/10/23 11/10/23 Previous Rx's Medication Instructions Recorded tamsulosin 0.4 mg capsule 0.4 mg PO BEDTIME #90 caps 12/26/22 levothyroxine 200 mcg tablet 200 mcg PO DAILY #90 tabs 12/07/23 levothyroxine 25 mcg tablet 25 mcg PO DAILY #90 tabs 12/07/23 Allergies Allergy/AdvReac Type Severity Reaction Status Date / Time No Known Drug Allergies Allergy Unverified 11/10/23 11:33 Patient History Medical History Leg edema Pre-diabetes Preoperative clearance Thrombocytopenia Preventative health care Wears glasses Eczema (~1967) Sleep apnea (~2009) Depression (~1984) Anxiety (~1984) Hand cramps (~2021) Mumps (~1959) Measles (~1957) Chicken pox (~1956) Vertigo (~2019) Hearing loss (~2009) History of elevated PSA (~2008) Deep vein thrombosis (~2001) Atrial fibrillation (~2001) History of thyroid cancer (~2001) History of squamous cell carcinoma BPH (benign prostatic hyperplasia) Hypothyroidism Surgical History Anesthesia History of lymph node excision (~05/06/18) History of radical prostatectomy (~08/31/10) History of thyroidectomy (~05/03/02) History of hernia repair (~1970) History of bariatric surgery (~07/30/17) History of prostate cancer (~2008) History of aortic valve repair (~2014) H/O mitral valve repair (~2001) Family History Father History of heart disease Hypertension Mother Breast cancer Stroke Sister Breast cancer Grandmother Breast cancer Grandfather Arteriosclerosis Grandmother History of heart disease Social History Smoking Status: Never smoker Smoking Status: Never smoker alcohol intake frequency: holidays/special occasions only Substance Use Type: does not use Exam Initial Vital Signs Initial Vital Signs: Vital Signs Temperature 98.9 F 12/20/23 19:26 Pulse Rate 62 12/20/23 19:26 Respiratory Rate 16 12/20/23 19:26 Blood Pressure 132/82 12/20/23 19:26 Pulse Oximetry 98 12/20/23 19:26 Oxygen Delivery Method Room Air 12/20/23 19:26 General: Alert appropriate in no acute distress HEENT: Abrasions over the nose and midface Respiratory: Able to speak in full sentences, no obvious respiratory distress Skin: No obvious rashes, warm and dry Neurologic: Grossly intact no obvious asymmetries or abnormalities Extremities: Left wrist with swelling and ecchymosis over the radial aspect. He actually has good and nontender range of motion in the wrist. He is neurovascularly intact. There is no elbow or shoulder complaints. No additional extremity complaints Psych: appropriate insight and affect, cooperative Course Orders Ordered: ED Orders 12/20/23 19:32 XR wrist LT min 3V Stat Vital Signs Vital signs: Vital Signs - 8 hr 12/20/23 19:26 Temperature 98.9 F Pulse Rate 62 Respiratory Rate 16 Blood Pressure 132/82 Pulse Oximetry 98 Oxygen Delivery Method Room Air MDM - Recheck/Abnormal Lab/Rx MDM Narrative Medical decision making narrative: CC: Seen earlier today with a ground level fall, CT scan was unremarkable. Once discharged noticed that his left wrist was hurting and comes in for re-evaluation Complicating co-morbidities: Seen earlier today for a fall Data collected from: patient Medical records reviewed: ER visit from earlier today is reviewed Differential considered: Fracture, sprain, bruising Exam documented above, pertinent findings include: Left wrist with moderate bruising and swelling. Range of motion is not limited. He is neurovascularly intact. He does not have snuffbox tenderness Imaging studies independently reviewed: PROCEDURE: XR WRIST LT MIN 3V INDICATIONS: fall with swelling and bruising to left wrist TECHNIQUE: 4 views of the wrist were acquired. COMPARISON: None. FINDINGS: Diffuse osseous demineralization, which limits the sensitivity for fracture detection and fracture acuity. Soft tissue edema around the volar-radial aspect of the wrist along with minimal irregularity of the radial lip. Otherwise, no other acute fracture or dislocation. Vascular calcifications. 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 IMPRESSION: Possible, minimally displaced distal radial metaphyseal fracture with intra-articular extension and associated soft tissue edema. Follow-up radiographs in 10-14 days could confirm this finding. Dictated by: Wagner Navas M.D. on 12/20/2023 at 19:55 Procedure/ Treatments: Left wrist volar splint is placed by nursing staff. Patient is neurovascularly intact pre and postprocedure. After immobilization the minor amount of pain that he had noticed is improved. Discussion: 73-year-old gentleman fall earlier today. Evaluated initially in the ER and after discharge notice increasing left wrist pain. Returns and x-ray suggests a possible minimally displaced distal radial fracture. Volar splint is placed. He is instructed to contact Orthopedic surgery tomorrow for outpatient follow up. We will need additional imaging to confirm presence of fracture. He is having minimal pain, encouraged Tylenol and ice. He understands reasoning for this splinting and concern for fracture without definitive diagnosis today. Understands importance of definitive treatment outpatient. At this point he is safe for discharge Discharge Plan Departure Patient Disposition: Home Clinical Impression: Fracture of wrist Qualifiers: Encounter type: initial encounter Fracture type: closed Laterality: left Qualified Code(s): S62.102A - Fracture of unspecified carpal bone, left wrist, initial encounter for closed fracture Instructions: DI for Wrist Fracture Activity Restrictions/Additional Instructions: Thank you for coming back to the ER this afternoon Sometimes, there was enough initial stimulation after your fall that smaller issues or missed. With the swelling in your left wrist possibility of a fracture is quite high. The radiologist was concerned that there may be a small fracture in the wrist bone. In the ER, I have placed you in a splint. You can use Tylenol as needed for pain. If it seems to be more swollen ice is appropriate. You will need to follow up with [facility] within the next couple of days. They will repeat x-rays at that time. Often, fractures or easier to see as they begin to heal. The phone number to schedule follow up ER appointment for your wrist fracture with [facility] is [phone]. Please give them a call tomorrow. Prescriptions: No Action tamsulosin 0.4 mg capsule 0.4 mg PO BEDTIME Qty: 90 2RF levothyroxine 25 mcg tablet 25 mcg PO DAILY Qty: 90 1RF levothyroxine 200 mcg tablet 200 mcg PO DAILY Qty: 90 2RF fwjpvpnm-bpq-ifbaw-vit K-lycop [One-A-Day Men's 50 Plus] PO cholecalciferol (vitamin D3) 50 mcg (2,000 unit) capsule 50 mcg PO DAILY warfarin 2.5 mg tablet PO Rx Instructions: 1.5 tablets (3.75 mg) on Mondays and 1 tablet (2.5 mg) all other days directed by Cardiology eplerenone 50 mg tablet 100 mg PO DAILY metoprolol succinate 100 mg tablet extended release 24 hr 100 mg PO DAILY oxybutynin chloride 10 mg tablet extended release 24hr 5 mg PO DAILY Referrals: Fidel Emanuel DO [Primary Care Provider] - Stand Alone Forms: Patient Portal/API
[2023-12-20 21:39] VITALS: BP 164/88; PULSE 75; RESP 18; O2SAT 100
== END 2023-12-20 21:47 | disposition home or self-care (01) ==
PROVIDERS: Emergency Provider Emergency Medicine; PCP Family Medicine
DX: S62.102A Fracture of unspecified carpal bone, left wrist, initial encounter for closed fracture (principal); W17.89XA Other fall from one level to another, initial encounter; Z79.01 Long term (current) use of anticoagulants
CPT/HCPCS: 29125; 70450; 72125; 73110; 99283; 99284

== ENCOUNTER → 2024-02-27 08:08 | Outpatient (CLI) | payer MEDICARE, SELFPAY ==
[2024-02-27 09:30] LABS: Alanine Aminotransferase 20 IU/L (<50); Albumin 3.9 g/dL (3.5-5.0); Albumin Globulin Ratio 1.8 (1.0-2.8); Alkaline Phosphatase 104 U/L (38-126); Aspartate Aminotransferase 23 IU/L (17-59); Blood Urea Nitrogen 12 mg/dL (9-20); Calcium 8.8 mg/dL (8.4-10.2); Carbon Dioxide 27 mmol/L (22-32); Chloride 107 mmol/L (98-107); Estimated Glomerular Filt Rate > 60 mL/min (>60); Globulin 2.2 g/dL (1.7-4.1); Glucose 99 mg/dL (80-110); HEMOLYSIS < 15 (0-50); Hemoglobin A1C% w Est Avg Glu 5.7 % (4.0-6.0); Potassium 3.9 mmol/L (3.4-5.1); Sodium 139 mmol/L (137-145); Total Protein 6.1 g/dL (6.3-8.2)
[2024-02-27 09:57] LABS: Prostate Specific Antigen Scrn < 0.064 ng/mL (0.1-4.0)
[2024-02-27 10:13] LABS: Thyroid Stimulating Hormone < 0.015 uIU/mL (0.47-4.68)
== END ==
PROVIDERS: PCP Family Medicine; Referring Provider Family Medicine; Visit Provider Family Medicine
DX: Z12.5 Encounter for screening for malignant neoplasm of prostate (principal); E03.9 Hypothyroidism, unspecified; I48.91 Unspecified atrial fibrillation; D69.6 Thrombocytopenia, unspecified
CPT/HCPCS: 36415; 80053; 83036; 84439; 84443; G0103

== ENCOUNTER → 2024-03-12 07:53 | Outpatient (CLI) | payer MEDICARE, SELFPAY ==
[2024-03-12 08:48] LABS: Hemoglobin A1C% w Est Avg Glu 5.6 % (4.0-6.0)
[2024-03-12 08:53] LABS: Alanine Aminotransferase 20 IU/L (<50); Albumin 3.8 g/dL (3.5-5.0); Albumin Globulin Ratio 1.7 (1.0-2.8); Alkaline Phosphatase 101 U/L (38-126); Aspartate Aminotransferase 26 IU/L (17-59); BUN Creatinine Ratio 13.2 (6-22); Bilirubin Total 1.2 mg/dL (0.2-1.3); Blood Urea Nitrogen 9 mg/dL (9-20); Calcium 8.7 mg/dL (8.4-10.2); Carbon Dioxide 28 mmol/L (22-32); Chloride 106 mmol/L (98-107); Cholesterol 151 mg/dL (140-199); Estimated Glomerular Filt Rate > 60 mL/min (>60); Globulin 2.2 g/dL (1.7-4.1); Glucose 108 mg/dL (80-110); HDL Cholesterol 37 mg/dL (40-60); HEMOLYSIS < 15 (0-50); LDL Cholesterol Calculated 88 mg/dL (<100); Potassium 3.4 mmol/L (3.4-5.1); Sodium 140 mmol/L (137-145); Triglycerides 130 mg/dL (35-150)
== END ==
LOC: LAB 07:55
PROVIDERS: PCP Family Medicine; Referring Provider Internal Medicine Cardiovascular Disease; Visit Provider Internal Medicine Cardiovascular Disease
DX: Z13.1 Encounter for screening for diabetes mellitus (principal); I10 Essential (primary) hypertension; Z13.220 Encounter for screening for lipoid disorders
CPT/HCPCS: 36415; 80053; 80061; 83036

== ENCOUNTER 2024-03-25 13:16 | Emergency (ER) | payer MEDICARE, SELFPAY ==
[2024-03-25] VITALS (10 sets, daily range): BP systolic 124–159; BP diastolic 60–83; PULSE 65–93; RESP 13–22; TEMP 36.4–36.5; O2SAT 96–99; BMI 34.0
--- NOTE | 2024-03-25 13:27 | EKG_ITS ---
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
--- NOTE | 2024-03-25 13:27 | DI.RAD.S_ITS ---
PROCEDURE: XR CHEST 1V INDICATIONS: chest pain TECHNIQUE: One view of the chest was acquired. COMPARISON: None. FINDINGS: Surgical changes and devices: Right chest wall battery pack is seen. Median sternotomy wires also noted. Lungs and pleura: Mild pulmonary vascular congestion. No definite focal infiltrate. No pleural effusions or pneumothorax. Mediastinum: Mediastinal contours appear normal. Heart size is normal. Bones and chest wall: No suspicious bony lesions. Overlying soft tissues appear unremarkable. IMPRESSION: Mild pulmonary vascular congestion. No definite focal infiltrate. No pleural effusion or pneumothorax. Dictated by: Vasile Mcgarry M.D. on 03/25/2024 at 14:23 Approved by: Vasile Mcgarry M.D. on 03/25/2024 at 14:25
[2024-03-25 13:43] LABS: Add Manual Diff / Slide Review NO; Basophils Absolute Auto 0 /uL (0-100); Basophils Percent Auto 0.6 % (0-2); Eosinophils Absolute Auto 100 /uL (0-450); Eosinophils Percent Auto 1.7 % (2-4); Hematocrit 43.5 % (41-53); Hemoglobin 14.9 g/dL (13.5-17.5); Lymphocytes Absolute Auto 1400 /uL (1100-4500); Lymphocytes Percent Auto 22.7 % (25-40); Mean Corpuscular HGB Conc 34.2 % (30-36); Mean Corpuscular Hemoglobin 29.7 PG (26-34); Mean Corpuscular Volume 86.8 fL (80-100); Monocytes Absolute Auto 500 /uL (0-900); Monocytes Percent Auto 8.7 % (3-14); Neutrophils Absolute Auto 4000 /uL (1500-7000); Neutrophils Percent Auto 66.3 % (50-75); Platelet Count 138 X10^3/uL (150-400); Red Blood Cell Count 5.01 X10^6/uL (4.5-5.9); Red Cell Distribution Width 14.2 % (11.6-14.8)
[2024-03-25 13:49] LABS: INR 2.4 (0.9-1.3); Prothrombin Time 26.9 SECONDS (9.4-12.5)
[2024-03-25 13:51] LABS: PTT Partial Thromboplastin Tim 45 SECONDS (25.1-36.5)
[2024-03-25 14:01] LABS: Alanine Aminotransferase 21 IU/L (<50); Albumin 4.3 g/dL (3.5-5.0); Albumin Globulin Ratio 1.7 (1.0-2.8); Alkaline Phosphatase 99 U/L (38-126); Aspartate Aminotransferase 27 IU/L (17-59); BUN Creatinine Ratio 15.2 (6-22); Bilirubin Total 0.8 mg/dL (0.2-1.3); Blood Urea Nitrogen 10 mg/dL (9-20); Carbon Dioxide 27 mmol/L (22-32); Chloride 106 mmol/L (98-107); Creatine Kinase 97 U/L (55-170); Estimated Glomerular Filt Rate > 60 mL/min (>60); Globulin 2.5 g/dL (1.7-4.1); Glucose 119 mg/dL (80-110); Lipase 108 U/L (23-300); Magnesium 1.9 mg/dL (1.6-2.3); Potassium 4.1 mmol/L (3.4-5.1); Sodium 139 mmol/L (137-145); Total Protein 6.8 g/dL (6.3-8.2)
[2024-03-25 14:07] LABS: HEMOLYSIS < 15 (0-50)
[2024-03-25 14:11] LABS: NT-proBNP (BNP-Adult 18+) 503 pg/mL (<125)
[2024-03-25 14:12] LABS: Troponin I < 0.012 ng/mL (0.01-0.034)
[2024-03-25 16:29] LABS: Troponin I < 0.012 ng/mL (0.01-0.034)
--- NOTE | 2024-03-25 17:42 | ED_ITS ---
HPI - Chest Pain General Chief Complaint: Chest Pain Stated Complaint: HBP, px in left arm and back sent by rug backing stenciler Time Seen by Provider: 03/25/24 17:41 Related Data Home Medications Medication Instructions Recorded Confirmed cholecalciferol (vitamin D3) 50 50 mcg PO DAILY 06/21/22 03/04/24 mcg (2,000 unit) capsule [id number]-vbm-[id number]-vit K-lycop PO 06/21/22 03/04/24 [One-A-Day Men's 50 Plus(vit K)] eplerenone 50 mg tablet 100 mg PO DAILY 11/10/23 03/04/24 warfarin 2.5 mg tablet mg PO 11/10/23 03/04/24 valsartan 40 mg tablet 40 mg PO DAILY 03/04/24 03/04/24 Previous Rx's Medication Instructions Recorded levothyroxine 200 mcg tablet 200 mcg PO DAILY #90 tabs 12/07/23 levothyroxine 25 mcg tablet 25 mcg PO DAILY #90 tabs 12/07/23 tamsulosin 0.4 mg capsule 0.4 mg PO BEDTIME #90 caps 12/26/23 oxybutynin chloride 10 mg 10 mg PO DAILY #90 tabs 02/07/24 tablet,extended release 24 hr metoprolol succinate 100 mg 100 mg PO BID #180 tabs 02/13/24 tablet,extended release 24 hr Allergies Allergy/AdvReac Type Severity Reaction Status Date / Time No Known Drug Allergies Allergy Unverified 03/04/24 08:39 Patient History Medical History (Updated 03/22/24 @ 18:23 by Fidel Emanuel DO) Medicare annual wellness visit, subsequent Well adult exam Essential tremor Leg edema Pre-diabetes Preoperative clearance Thrombocytopenia Preventative health care Wears glasses Eczema (~1967) Sleep apnea (~2009) Depression (~1984) Anxiety (~1984) Hand cramps (~2021) Mumps (~1959) Measles (~1957) Chicken pox (~1956) Vertigo (~2019) Hearing loss (~2009) History of elevated PSA (~2008) Deep vein thrombosis (~2001) Atrial fibrillation (~2001) History of thyroid cancer (~2001) History of squamous cell carcinoma BPH (benign prostatic hyperplasia) Hypothyroidism Surgical History Anesthesia History of lymph node excision (~05/06/18) History of radical prostatectomy (~08/31/10) History of thyroidectomy (~05/03/02) History of hernia repair (~1970) History of bariatric surgery (~07/30/17) History of prostate cancer (~2008) History of aortic valve repair (~2014) H/O mitral valve repair (~2001) Family History Father History of heart disease Hypertension Mother Breast cancer Stroke Sister Breast cancer Grandmother Breast cancer Grandfather Arteriosclerosis Grandmother History of heart disease Social History (Updated 03/04/24 @ 08:33 by Judy Calderon MA) marital status: details: parents (father 1979, mother 2006) number of children: 4 lives independently: Yes caregiver/support person: No housing: house pets and animals: No education level: master's degree occupational status: previously employed current occupational exposures/hazards: No 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 ravi/religious: Restorationism special ravi needs: No travel history: recent sexual history: Not active post prostatectomy other: work on house; occasional travel; music appreciation decreased by deafness seatbelt use: always helmet use: No working smoke detector in home: Yes fire extinguisher in home: Yes carbon monox detector in home: Yes firearms in home: No do you feel safe at home: Yes Smoking Status: Never smoker second hand exposure: No alcohol intake: current substance use type: does not use during the past year weight has: remained stable well-balanced diet: rarely or never daily servings fruits/ve-1 caffeine: No (cola) eating out: 1-3 times/week Type(s) of exercise: walking, independent ambulation and irregular exercise Smoking Status: Never smoker alcohol intake frequency: holidays/special occasions only Exam Narrative Exam Narrative: GENERAL: Well-developed patient, in mild distress. HEAD: Atraumatic. Normocephalic. EYES: Pupils equal round and reactive. Extraocular motions intact. No scleral icterus. No injection or drainage. ENT: Nose without bleeding, purulent drainage. Throat without erythema, tonsillar hypertrophy or exudate. Airway patent. NECK: Trachea midline. Non tender CARDIOVASCULAR: Regular rate and rhythm without murmurs, gallops, or rubs. RESPIRATORY: Clear to auscultation. Breath sounds equal bilaterally. No wheezes, rales, or rhonchi. GASTROINTESTINAL: Abdomen soft, non-tender, nondistended. EXTREMITIES: No edema or joint tenderness. BACK: Nontender without deformity or crepitance. No flank tenderness. NEURO: AOx3. Motor functions grossly nonfocal SKIN: No rash or erythema of visible areas Initial Vital Signs Initial Vital Signs: Vital Signs Temperature 97.6 F 03/25/24 13:20 Pulse Rate 82 03/25/24 13:20 Respiratory Rate 18 03/25/24 13:20 Blood Pressure 125/78 03/25/24 13:20 Pulse Oximetry 99 03/25/24 13:20 Oxygen Delivery Method Room Air 03/25/24 13:20 Course Orders Ordered: ED Orders 03/25/24 13:27 XR chest 1V Stat EKG-12 Lead Stat 03/25/24 13:30 Complete Blood Count AUTO DIFF Stat Comprehensive Metabolic Panel Stat Lipase Stat Magnesium Stat NT-proBNP (BNP-Adult 18+) Stat PTT Partial Thromboplastin Valentín Stat Prothrombin Time INR Stat Troponin & CK Cardiac Panel Stat 03/25/24 15:54 Trop I [Troponin I] Stat Discontinued Medications Aspirin (Aspirin 81 Mg Chew Tab) 324 mg PO NOW ONE Stop: 03/25/24 13:28 Vital Signs Vital signs: Vital Signs - 8 hr 03/25/24 13:20 03/25/24 16:38 03/25/24 16:41 Temperature 97.6 F Pulse Rate 82 93 H 80 Respiratory Rate 18 22 Blood Pressure 125/78 Pulse Oximetry 99 98 Oxygen Delivery Method Room Air 03/25/24 16:41 03/25/24 17:00 03/25/24 17:00 Temperature Pulse Rate 83 Respiratory Rate 17 Blood Pressure 132/73 124/69 Pulse Oximetry 96 Oxygen Delivery Method 03/25/24 17:31 03/25/24 17:31 Temperature Pulse Rate 75 Respiratory Rate 13 Blood Pressure 133/60 Pulse Oximetry 98 Oxygen Delivery Method Room Air MDM - Chest Pain Lab Data 03/25/24 13:30 03/25/24 13:30 Labs: Lab Results 03/25/24 03/25/24 Range/Units 13:30 15:54 WBC 6.0 (4.5-11.0) X10^3/uL RBC 5.01 (4.5-5.9) X10^6/uL Hgb 14.9 (13.5-17.5) g/dL Hct 43.5 (41-53) % MCV 86.8 (80-100) fL MCH 29.7 (26-34) PG MCHC 34.2 (30-36) % RDW 14.2 (11.6-14.8) % Plt Count 138 L (150-400) X10^3/uL Neut % (Auto) 66.3 (50-75) % Lymph % (Auto) 22.7 L (25-40) % [place] % (Auto) 8.7 (3-14) % Eos % (Auto) 1.7 L (2-4) % Baso % (Auto) 0.6 (0-2) % Neut # (Auto) 4000 (5775-7935) /uL Lymph # (Auto) 1400 (4974-8404) /uL [place] # (Auto) 500 (0-900) /uL Eos # (Auto) 100 (0-450) /uL Baso # (Auto) 0 (0-100) /uL PT 26.9 H (9.4-12.5) SECONDS INR 2.4 H (0.9-1.3) APTT 45 H (25.1-36.5) SECONDS Sodium 139 (137-145) mmol/L Potassium 4.1 (3.4-5.1) mmol/L Chloride 106 (98-107) mmol/L Carbon Dioxide 27 (22-32) mmol/L BUN 10 (9-20) mg/dL Creatinine 0.66 (0.66-1.25) mg/dL Estimated GFR > 60 (>60) mL/min BUN/Creatinine Ratio 15.2 (6-22) Glucose 119 H (80-110) mg/dL Calcium 9.0 (8.4-10.2) mg/dL Magnesium 1.9 (1.6-2.3) mg/dL Total Bilirubin 0.8 (0.2-1.3) mg/dL AST 27 (17-59) IU/L ALT 21 (<50) IU/L Alkaline Phosphatase 99 (38-126) U/L Total Creatine Kinase 97 (55-170) U/L Troponin I < 0.012 < 0.012 (0.01-0.034) ng/mL NT-Pro-B Natriuret Pep 503 H (<125) pg/mL Total Protein 6.8 (6.3-8.2) g/dL Albumin 4.3 (3.5-5.0) g/dL Globulin 2.5 (1.7-4.1) g/dL Albumin/Globulin Ratio 1.7 (1.0-2.8) Lipase 108 (23-300) U/L Discharge Plan Departure Prescriptions: No Action levothyroxine 25 mcg tablet 25 mcg PO DAILY Qty: 90 1RF levothyroxine 200 mcg tablet 200 mcg PO DAILY Qty: 90 2RF tamsulosin 0.4 mg capsule 0.4 mg PO BEDTIME Qty: 90 2RF oxybutynin chloride 10 mg tablet extended release 24hr 10 mg PO DAILY Qty: 90 0RF metoprolol succinate 100 mg tablet extended release 24 hr 100 mg PO BID Qty: 180 3RF emjnmwqy-unk-gcnvz-vit K-lycop [One-A-Day Men's 50 Plus] PO cholecalciferol (vitamin D3) 50 mcg (2,000 unit) capsule 50 mcg PO DAILY valsartan 40 mg tablet 40 mg PO DAILY warfarin 2.5 mg tablet PO Rx Instructions: 1.5 tablets (3.75 mg) on Mondays and 1 tablet (2.5 mg) all other days directed by Cardiology eplerenone 50 mg tablet 100 mg PO DAILY Referrals: Fidel Emanuel, [Primary Care Provider] -
--- NOTE | 2024-03-25 18:14 | ED_ITS ---
HPI - Chest Pain General Chief Complaint: Chest Pain Stated Complaint: HBP, px in left arm and back sent by deputy clerk of superior court Time Seen by Provider: 03/25/24 17:41 History of Present Illness HPI narrative: Patient is a 73-year-old male with history of atrial fibrillation on anticoagulation on warfarin, cardiac valve disease with replacement, a device for MATILDE not a pacemaker, hypothyroidism secondary to thyroidectomy with history of thyroid cancer, BPH prostate cancer hypertension, presenting today at request of Cardiology for ongoing left upper back pain that radiates down his left arm. He reports that he has had some left-sided back pain feels like somebody is poking him or stabbing him. He also feels like he has pressure in his left arm which he describes as a blood pressure cuff that is too tight. It comes and goes it has not necessarily associated with exertion. While in the emergency department for over 4 hours he has not had any recurrence of symptoms. He called his deputy clerk of superior court whom he saw last week who recommended he come to the ED. At no time does he have any sort of chest pain or shortness of breath. He has no significant lower extremity swelling. He does not have known coronary artery disease Related Data Home Medications Medication Instructions Recorded Confirmed cholecalciferol (vitamin D3) 50 50 mcg PO DAILY 06/21/22 03/04/24 mcg (2,000 unit) capsule [id number]-[id number]-vit K-lycop PO 06/21/22 03/04/24 [One-A-Day Men's 50 Plus(vit K)] eplerenone 50 mg tablet 100 mg PO DAILY 11/10/23 03/04/24 warfarin 2.5 mg tablet mg PO 11/10/23 03/04/24 valsartan 40 mg tablet 40 mg PO DAILY 03/04/24 03/04/24 Previous Rx's Medication Instructions Recorded levothyroxine 200 mcg tablet 200 mcg PO DAILY #90 tabs 12/07/23 levothyroxine 25 mcg tablet 25 mcg PO DAILY #90 tabs 12/07/23 tamsulosin 0.4 mg capsule 0.4 mg PO BEDTIME #90 caps 12/26/23 oxybutynin chloride 10 mg 10 mg PO DAILY #90 tabs 02/07/24 tablet,extended release 24 hr metoprolol succinate 100 mg 100 mg PO BID #180 tabs 02/13/24 tablet,extended release 24 hr Allergies Allergy/AdvReac Type Severity Reaction Status Date / Time No Known Drug Allergies Allergy Unverified 03/04/24 08:39 Patient History Medical History Medicare annual wellness visit, subsequent Well adult exam Essential tremor Leg edema Pre-diabetes Preoperative clearance Thrombocytopenia Preventative health care Wears glasses Eczema (~1967) Sleep apnea (~2009) Depression (~1984) Anxiety (~1984) Hand cramps (~2021) Mumps (~1959) Measles (~1957) Chicken pox (~1956) Vertigo (~2019) Hearing loss (~2009) History of elevated PSA (~2008) Deep vein thrombosis (~2001) Atrial fibrillation (~2001) History of thyroid cancer (~2001) History of squamous cell carcinoma BPH (benign prostatic hyperplasia) Hypothyroidism Surgical History Anesthesia History of lymph node excision (~05/06/18) History of radical prostatectomy (~08/31/10) History of thyroidectomy (~05/03/02) History of hernia repair (~1970) History of bariatric surgery (~07/30/17) History of prostate cancer (~2008) History of aortic valve repair (~2014) H/O mitral valve repair (~2001) Family History Father History of heart disease Hypertension Mother Breast cancer Stroke Sister Breast cancer Grandmother Breast cancer Grandfather Arteriosclerosis Grandmother History of heart disease Social History marital status: details: parents (father 1979, mother 2006) number of children: 4 lives independently: Yes caregiver/support person: No housing: house pets and animals: No education level: master's degree occupational status: previously employed current occupational exposures/hazards: No 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 ravi/taoism: Faith special ravi needs: No travel history: recent sexual history: Not active post prostatectomy other: work on house; occasional travel; music appreciation decreased by deafness seatbelt use: always helmet use: No working smoke detector in home: Yes fire extinguisher in home: Yes carbon monox detector in home: Yes firearms in home: No do you feel safe at home: Yes Smoking Status: Never smoker second hand exposure: No alcohol intake: current substance use type: does not use during the past year weight has: remained stable well-balanced diet: rarely or never daily servings fruits/ve-1 caffeine: No (cola) eating out: 1-3 times/week Type(s) of exercise: walking, independent ambulation and irregular exercise Smoking Status: Never smoker alcohol intake frequency: holidays/special occasions only Exam Initial Vital Signs Initial Vital Signs: Vital Signs Temperature 97.6 F 03/25/24 13:20 Pulse Rate 82 03/25/24 13:20 Respiratory Rate 18 03/25/24 13:20 Blood Pressure 125/78 03/25/24 13:20 Pulse Oximetry 99 03/25/24 13:20 Oxygen Delivery Method Room Air 03/25/24 13:20 GENERAL: Alert very pleasant 73-year-old male HEENT: Head atraumatic,EOMI, pupils reactive, face symmetric, [moist] mucous membranes CARDIOVASCULAR: Regular rate and rhythm without murmurs, rubs or gallops. RESPIRATORY: Breath sounds equal bilaterally, no wheezes rales or rhonchi. BACK: No reproducible pain in the left scapular region no vertebral tenderness ABDOMEN: Soft, nontender. Normoactive bowel sounds all 4 quadrants. No guarding or rebound. EXTREMITIES: Normal range of motion, no clubbing or edema. Neurovascularly intact NEUROLOGICAL: Alert and oriented x4.Normal gait and speech. Cranial nerves II through XII grossly intact. SKIN: Warm, dry, no laceration, no petechiae, no rashes or lesions. Course Orders Ordered: Discontinued Medications Aspirin (Aspirin 81 Mg Chew Tab) 324 mg PO NOW ONE Stop: 03/25/24 13:28 Last Admin: 03/25/24 18:43 Dose: Not Given Documented By: SB Vital Signs Vital signs: Vital Signs - 8 hr 03/25/24 18:30 03/25/24 18:31 03/25/24 18:31 Temperature Pulse Rate 70 65 Respiratory Rate Blood Pressure 143/82 H Pulse Oximetry 97 96 Oxygen Delivery Method Room Air 03/25/24 19:01 Temperature 97.7 F Pulse Rate 65 Respiratory Rate 18 Blood Pressure 143/82 H Pulse Oximetry Oxygen Delivery Method Room Air MDM - Chest Pain Lab Data 03/25/24 13:30 03/25/24 13:30 Labs: Lab Results 03/25/24 03/25/24 Range/Units 13:30 15:54 WBC 6.0 (4.5-11.0) X10^3/uL RBC 5.01 (4.5-5.9) X10^6/uL Hgb 14.9 (13.5-17.5) g/dL Hct 43.5 (41-53) % MCV 86.8 (80-100) fL MCH 29.7 (26-34) PG MCHC 34.2 (30-36) % RDW 14.2 (11.6-14.8) % Plt Count 138 L (150-400) X10^3/uL Neut % (Auto) 66.3 (50-75) % Lymph % (Auto) 22.7 L (25-40) % [place] % (Auto) 8.7 (3-14) % Eos % (Auto) 1.7 L (2-4) % Baso % (Auto) 0.6 (0-2) % Neut # (Auto) 4000 (5560-0096) /uL Lymph # (Auto) 1400 (4407-0017) /uL [place] # (Auto) 500 (0-900) /uL Eos # (Auto) 100 (0-450) /uL Baso # (Auto) 0 (0-100) /uL PT 26.9 H (9.4-12.5) SECONDS INR 2.4 H (0.9-1.3) APTT 45 H (25.1-36.5) SECONDS Sodium 139 (137-145) mmol/L Potassium 4.1 (3.4-5.1) mmol/L Chloride 106 (98-107) mmol/L Carbon Dioxide 27 (22-32) mmol/L BUN 10 (9-20) mg/dL Creatinine 0.66 (0.66-1.25) mg/dL Estimated GFR > 60 (>60) mL/min BUN/Creatinine Ratio 15.2 (6-22) Glucose 119 H (80-110) mg/dL Calcium 9.0 (8.4-10.2) mg/dL Magnesium 1.9 (1.6-2.3) mg/dL Total Bilirubin 0.8 (0.2-1.3) mg/dL AST 27 (17-59) IU/L ALT 21 (<50) IU/L Alkaline Phosphatase 99 (38-126) U/L Total Creatine Kinase 97 (55-170) U/L Troponin I < 0.012 < 0.012 (0.01-0.034) ng/mL NT-Pro-B Natriuret Pep 503 H (<125) pg/mL Total Protein 6.8 (6.3-8.2) g/dL Albumin 4.3 (3.5-5.0) g/dL Globulin 2.5 (1.7-4.1) g/dL Albumin/Globulin Ratio 1.7 (1.0-2.8) Lipase 108 (23-300) U/L Imaging Data Chest x-ray: Radiologist's Impression: PROCEDURE: XR CHEST 1V INDICATIONS: chest pain TECHNIQUE: One view of the chest was acquired. COMPARISON: None. FINDINGS: Surgical changes and devices: Right chest wall battery pack is seen. Median sternotomy wires also noted. Lungs and pleura: Mild pulmonary vascular congestion. No definite focal infiltrate. No pleural effusions or pneumothorax. Mediastinum: Mediastinal contours appear normal. Heart size is normal. Bones and chest wall: No suspicious bony lesions. Overlying soft tissues appear unremarkable. IMPRESSION: Mild pulmonary vascular congestion. No definite focal infiltrate. No pleural effusion or pneumothorax. Dictated by: Vasile Mcgarry M.D. on 03/25/2024 at 14:23 ECG Data Attestation: I personally reviewed and interpreted this ECG as follows: Prior ECG tracings: not available for review Interpretation: Atrial fibrillation rate 74 PVCs noted right bundle-branch block noted no obvious ST changes MDM Narrative Medical decision making narrative: [facility] CC: Back pain Complicating co-morbidities: Cardiac valve disease atrial fibrillation on warfarin Medical records reviewed: Prior PCP no March 04 Differential considered: Acute coronary syndrome angina musculoskeletal Exam documented above, pertinent findings include: Alert well-appearing 73-year-old male pain and back is not reproducible no significant lower extremity edema neurovascularly intact Lab Test results independently reviewed as above. Pertinent findings: Troponin negative x2 INR 2.4 Electrolytes within normal limits no ARIAS No leukocytosis or anemia Independently reviewed EKG as above atrial fibrillation right bundle-branch block no ischemia Imaging studies independently reviewed: Mild vascular congestion Consultations: 1844 Dr. Boyer cardiology updated on patient's symptoms test results does not recommend a nuclear stress test and being admitted for a nuclear stress test. 1850 Dr. Arreaga hospitalist reports that not able to get a stress test due to tomorrow being An [place] Treatments: None Re-evaluations: Patient remains pain-free Discussion: Patient is 73 year old male with cardiac valve disease AFib on warfarin INR is therapeutic today presents today with 3 days of left arm achiness and some left back pain. It has not necessarily reproducible with exertion or palpation. He has no chest pain or shortness of breath. He is 2- troponins. He has no known coronary artery disease. Discussion with Cardiology in regards to plan. It was recommended that patient be admitted for a stress test however unable to get a stress test over the next couple of days. Discussion with patient he is well aware that he needs a stress test and further cardiac evaluation. He understands that he needs to return to the ED if symptoms are worsening or changing. Discharge Plan Departure Patient Disposition: Home Clinical Impression: Atypical chest pain Instructions: DI for Atypical Chest Pain Activity Restrictions/Additional Instructions: *You have been diagnosed with atypical chest pain *What to do: At this time you do need a stress test. I am sorry we were not able to get that done for you here. Please return to the ED at knee time if you should have worsening symptoms meeting symptoms lasting longer than normal increasing in intensity chest pain shortness of breath please return to ED immediately *Continue to take medications as directed *Follow up with your primary care provider in 2-3 days or call [phone] *Return to ER if you should have above symptoms or any new, worsening or concerning symptoms Prescriptions: No Action levothyroxine 25 mcg tablet 25 mcg PO DAILY Qty: 90 1RF levothyroxine 200 mcg tablet 200 mcg PO DAILY Qty: 90 2RF tamsulosin 0.4 mg capsule 0.4 mg PO BEDTIME Qty: 90 2RF oxybutynin chloride 10 mg tablet extended release 24hr 10 mg PO DAILY Qty: 90 0RF metoprolol succinate 100 mg tablet extended release 24 hr 100 mg PO BID Qty: 180 3RF htbflgtl-fer-rkpbw-vit K-lycop [One-A-Day Men's 50 Plus] PO cholecalciferol (vitamin D3) 50 mcg (2,000 unit) capsule 50 mcg PO DAILY valsartan 40 mg tablet 40 mg PO DAILY warfarin 2.5 mg tablet PO Rx Instructions: 1.5 tablets (3.75 mg) on Mondays and 1 tablet (2.5 mg) all other days directed by Cardiology eplerenone 50 mg tablet 100 mg PO DAILY Referrals: Fidel Emanuel DO [Primary Care Provider] - Stand Alone Forms: Patient Portal/API/Survey
== END 2024-03-25 19:11 | disposition home or self-care (01) ==
PROVIDERS: Emergency Medicine; Emergency Provider Emergency Medicine; PCP Family Medicine
DX: R07.89 Other chest pain (principal); M54.89 Other dorsalgia; I48.91 Unspecified atrial fibrillation; Z79.01 Long term (current) use of anticoagulants; Z95.2 Presence of prosthetic heart valve; M79.602 Pain in left arm
CPT/HCPCS: 36415; 71045; 80053; 82550; 83690; 83735; 83880; 84484; 85025; 85610; 85730; 93005; 99283; 99284

== ENCOUNTER → 2024-05-14 15:52 | Outpatient (CLI) | payer MEDICARE, SELFPAY | PROVIDERS: PCP Family Medicine; Visit Provider Physician Assistant Surgical | DX: R30.0 Dysuria (principal) | CPT/HCPCS: 87077; 87086; 87186 ==

== ENCOUNTER → 2024-06-18 11:23 | Outpatient (CLI) | payer MEDICARE, SELFPAY ==
[2024-06-18 12:41] LABS: BUN Creatinine Ratio 13.8 (6-22); Blood Urea Nitrogen 9 mg/dL (9-20); Calcium 8.5 mg/dL (8.4-10.2); Carbon Dioxide 26 mmol/L (22-32); Chloride 104 mmol/L (98-107); Estimated Glomerular Filt Rate > 60 mL/min (>60); Glucose 129 mg/dL (80-110); HEMOLYSIS < 15 (0-50); Potassium 3.6 mmol/L (3.4-5.1); Sodium 139 mmol/L (137-145)
== END ==
LOC: LAB 11:24
PROVIDERS: PCP Family Medicine; Referring Provider Internal Medicine Cardiovascular Disease; Visit Provider Internal Medicine Cardiovascular Disease
DX: R60.9 Edema, unspecified (principal)
CPT/HCPCS: 36415; 80048

== ENCOUNTER 2024-10-19 16:45 | Emergency (ER) | payer MEDICARE, SELFPAY ==
[2024-10-19 16:58] VITALS: BP 122/69; PULSE 77; RESP 16; TEMP 37; O2SAT 98; BMI 34.2
--- NOTE | 2024-10-19 17:12 | DI.RAD.S_ITS ---
PROCEDURE: XR HAND LT MIN 3V INDICATIONS: fall/ hand and 3-4 digit pain TECHNIQUE: 3 views of the hand(s) acquired. COMPARISON: None. FINDINGS: Bones: No fractures or dislocations. Carpal bones are normally aligned. No suspicious bony lesions. There are degenerative changes at the IP joints, most prominent at the 2nd and 3rd DIP joints. Soft tissues: No suspicious soft tissue calcifications. IMPRESSION: No acute bony abnormality. Dictated by: Aggie Gamboa M.D. on 10/19/2024 at 16:57 Approved by: Aggie Gamboa M.D. on 10/19/2024 at 16:58
--- NOTE | 2024-10-19 18:00 | ED.UPPEXIN ---
HPI - Extremity Injury (Upper) General Chief Complaint: Extremity Injury, Upper Stated Complaint: injury left hand Time Seen by Provider: 10/19/24 18:00 History of Present Illness HPI narrative: Mr. Araujo is a very pleasant 74-year-old male with a past medical history of atrial fibrillation on warfarin, valvular heart disease who presents to the emergency department with left 4th and 3rd finger pain and swelling after a fall on an outstretched hand. Patient was carrying something and tripped and fell forward causing abrasions on his left mccauley, left elbow and he injured his left middle and ring fingers. They are now swollen. His wedding ring was removed in triage. He denies any pain elsewhere. He did not hit his head. Patient caught himself using the left forearm and the left knee/lower leg. No chest pain, shortness of breath, back pain, neck pain, head pain, wrist pain, elbow pain, knee pain. He is unsure of his last Tdap. Related Data Home Medications ?Medication ?Instructions ?Recorded ?Confirmed cholecalciferol (vitamin D3) 50 50 mcg PO DAILY 06/21/22 05/14/24 mcg (2,000 unit) capsule fuzyghka-lkh-epweu-vit K-lycop PO 06/21/22 05/14/24 [One-A-Day Men's 50 Plus(vit K)] eplerenone 50 mg tablet 100 mg PO DAILY 11/10/23 05/14/24 warfarin 2.5 mg tablet mg PO 11/10/23 05/14/24 valsartan 40 mg tablet 40 mg PO DAILY 03/04/24 05/14/24 Previous Rx's ?Medication ?Instructions ?Recorded metoprolol succinate 100 mg 100 mg PO BID #180 tabs 02/13/24 tablet,extended release 24 hr levothyroxine 25 mcg tablet 25 mcg PO DAILY #90 tabs 03/29/24 oxybutynin chloride 10 mg 10 mg PO DAILY #90 tabs 05/06/24 tablet,extended release 24 hr cefdinir 300 mg capsule 300 mg PO BID #14 caps 05/16/24 levothyroxine 200 mcg tablet 200 mcg PO DAILY #90 tabs 06/18/24 tamsulosin 0.4 mg capsule 0.4 mg PO ONCE PM #90 caps 09/24/24 Allergies Allergy/AdvReac Type Severity Reaction Status Date / Time No Known Drug Allergies Allergy Verified 05/14/24 15:53 Review of Systems Review of Systems ROS Unobtainable: All systems reviewed & are unremarkable except as noted in HPI and below Patient History Medical History Medicare annual wellness visit, subsequent Well adult exam Essential tremor Leg edema Pre-diabetes Preoperative clearance Thrombocytopenia Preventative health care Wears glasses Eczema (~1967) Sleep apnea (~2009) Depression (~1984) Anxiety (~1984) Hand cramps (~2021) Mumps (~1959) Measles (~1957) Chicken pox (~1956) Vertigo (~2019) Hearing loss (~2009) History of elevated PSA (~2008) Deep vein thrombosis (~2001) Atrial fibrillation (~2001) History of thyroid cancer (~2001) History of squamous cell carcinoma BPH (benign prostatic hyperplasia) Hypothyroidism Surgical History Anesthesia History of lymph node excision (~05/06/18) History of radical prostatectomy (~08/31/10) History of thyroidectomy (~05/03/02) History of hernia repair (~1970) History of bariatric surgery (~07/30/17) History of prostate cancer (~2008) History of aortic valve repair (~2014) H/O mitral valve repair (~2001) Family History Father History of heart disease Hypertension Mother Breast cancer Stroke Sister Breast cancer Grandmother Breast cancer Grandfather Arteriosclerosis Grandmother History of heart disease Social History marital status: details: parents (father 1979, mother 2006) number of children: 4 lives independently: Yes caregiver/support person: No housing: house pets and animals: No education level: master's degree occupational status: previously employed current occupational exposures/hazards: No 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 ravi/yazidism: [employer] special ravi needs: No travel history: recent sexual history: Not active post prostatectomy other: work on house; occasional travel; music appreciation decreased by deafness seatbelt use: always helmet use: No working smoke detector in home: Yes fire extinguisher in home: Yes carbon monox detector in home: Yes firearms in home: No do you feel safe at home: Yes second hand exposure: No alcohol intake: current substance use type: does not use during the past year weight has: remained stable well-balanced diet: rarely or never daily servings fruits/ve-1 caffeine: No (cola) eating out: 1-3 times/week Type(s) of exercise: walking, independent ambulation and irregular exercise alcohol intake frequency: holidays/special occasions only Exam Narrative Exam Narrative: GENERAL: 74 year old patient appears stated age. Well-developed patient, in no acute distress. HEAD: Atraumatic. Normocephalic. EYES: No scleral icterus. No injection or drainage. NECK: Trachea midline. Cervical ROM intact. CARDIOVASCULAR: Regular rate RESPIRATORY: ?Nonlabored respirations. ?Speaking in clear, full sentences. ?Clear to auscultation. GASTROINTESTINAL: Abdomen soft, non-tender, nondistended. EXTREMITIES: For small superficial abrasions on the anterior lateral left mccauley. Two superficial abrasions on the left elbow. Bleeding controlled with direct pressure. Patient has edema of the left 4th digit PIP joint. Isolated flexion and extension are intact throughout the D IP, PIP and MCP joints of the left hand. Brisk capillary refill in the fingers sensation intact to light touch. Patient has subjective pain with flexion of both the 3rd and 4th left fingers. BACK: Nontender without deformity or crepitance. No flank tenderness. NEURO: AOx3. ?Clear speech. ?Moves all 4 extremities appropriately. SKIN: Skin is warm, dry, no rashes. Superficial abrasions described above on left lower extremity and left elbow. Initial Vital Signs Initial Vital Signs: Vital Signs Temperature 98.6 F 10/19/24 16:58 Pulse Rate 77 10/19/24 16:58 Respiratory Rate 16 10/19/24 16:58 Blood Pressure 122/69 10/19/24 16:58 Pulse Oximetry 98 10/19/24 16:58 Oxygen Delivery Method Room Air 10/19/24 16:58 Course Orders Ordered: ED Orders 10/19/24 17:12 XR hand LT min 3V Stat Discontinued Medications Bacitracin (Bacitracin Oint 0.9 Gm Pckt) 1 applic TOP NOW ONE Stop: 10/19/24 18:19 Last Admin: 10/19/24 19:10 Dose: 1 applic Documented By: NICKY Diphtheria/Tetanus/Acell Pertussis (Tet,Diph,Pertuss(Acell),Vac/Pf 0.5 Ml Syringe) 0.5 ml IM .ONCE ONE Stop: 10/19/24 18:19 Last Admin: 10/19/24 19:10 Dose: 0.5 ml Documented By: NICKY Vital Signs Vital signs: Vital Signs - 8 hr 10/19/24 16:58 10/19/24 19:15 Temperature 98.6 F 98.2 F Pulse Rate 77 60 Respiratory Rate 16 16 Blood Pressure 122/69 130/77 Pulse Oximetry 98 97 Oxygen Delivery Method Room Air Room Air MDM - Extremity Injury (Upper) Medical Records Attestation: I reviewed the patient's medical records. Imaging Data Left Hand XR: Radiologist's Impression: PROCEDURE: XR HAND LT MIN 3V INDICATIONS: fall/ hand and 3-4 digit pain TECHNIQUE: 3 views of the hand(s) acquired. COMPARISON: None. FINDINGS: Bones: No fractures or dislocations. Carpal bones are normally aligned. No suspicious bony lesions. There are degenerative changes at the IP joints, most prominent at the 2nd and 3rd DIP joints. Soft tissues: No suspicious soft tissue calcifications. IMPRESSION: No acute bony abnormality. Dictated by: Aggie Gamboa M.D. on 10/19/2024 at 16:57 Approved by: Aggie Gamboa M.D. on 10/19/2024 at 16:58 [facility] Narrative Medical decision making narrative: 74-year-old male with a past medical history of atrial fibrillation on warfarin, valvular heart disease who presents to the emergency department with left 4th and 3rd finger pain and swelling after a fall on an outstretched hand. Differential diagnosis includes but is not limited to left hand sprain, strain, fracture, superficial abrasions, mechanical fall, etc. On exam patient is in no acute distress, nontoxic appearing, all vital signs within normal limits. Patient had a trip and fall earlier today catching themselves on the left forearm and left lower leg, there was no head trauma. Patient is here only for pain of the left 3rd and 4th fingers. X-ray left hand obtained in triage. He does also have some superficial abrasions, we will update Tdap, abrasions were irrigated and cleansed extensively by nursing staff, I then applied bacitracin and nonadherent dressings. Left hand x-ray reveals no acute bony abnormality, there are degenerative changes. Patient's left 3rd and 4th fingers were radha-taped together and I did apply an Srikanth wrap the hand and left elbow as well to help with any swelling. Discussed proper wound care, follow up with PCP, supportive care, Tylenol for pain. Discussed ED return precautions. Patient and verbalized understanding of all information agreeable with the plan. He is ambulatory and stable for discharge home. Discharge Plan Departure Patient Disposition: Home Clinical Impression: Sprain and strain of left hand, Fall from ground level Abrasion of anterior left lower leg Qualifiers: Encounter type: initial encounter Qualified Code(s): S80.812A - Abrasion, left lower leg, initial encounter Abrasion of elbow, left Qualifiers: Encounter type: initial encounter Qualified Code(s): S50.312A - Abrasion of left elbow, initial encounter Instructions: DI for Finger Sprain Activity Restrictions/Additional Instructions: Dear Mr. Araujo, Thank you for coming to the emergency department. Today you were evaluated for left hand pain after a fall. Your x-ray showed no broken bones. Please radha tape your fingers/use an Srikanth wrap on the left hand as needed. Your Tdap shot was updated today in his good for the next 5-10 years. Please keep all abrasions clean, dry, covered with ointment and a dressing until they are fully healed. Avoid soaking wounds in any pool water, bath water, ocean water, [place] water, etc. Please return to the emergency department if you develop any new or worsening symptoms, pus draining from the wounds, streaking redness around the wounds, fevers or other concerns. Please follow up with your primary care doctor within the next 2-3 days for ER follow-up. (If you do not have a PCP you can call [phone]. ?to schedule an appointment with an [facility] Primary Care Provider) IF YOU DEVELOP ANY NEW OR WORSENING SYMPTOMS, RETURN TO THE ER! Please read the attached instructions, they highlight more specific treatments and interventions for you at home. Thank you for letting me participate in your care, Smitha Woo PA-C Prescriptions: No Action metoprolol succinate 100 mg tablet extended release 24 hr 100 mg PO BID Qty: 180 3RF levothyroxine 25 mcg tablet 25 mcg PO DAILY Qty: 90 1RF oxybutynin chloride 10 mg tablet extended release 24hr 10 mg PO DAILY Qty: 90 3RF cefdinir 300 mg capsule 300 mg PO BID Qty: 14 0RF levothyroxine 200 mcg tablet 200 mcg PO DAILY Qty: 90 3RF tamsulosin 0.4 mg capsule 0.4 mg PO ONCE PM Qty: 90 1RF nbgfomcm-dnn-wacwk-vit K-lycop [One-A-Day Men's 50 Plus(vit K)] PO cholecalciferol (vitamin D3) 50 mcg (2,000 unit) capsule 50 mcg PO DAILY valsartan 40 mg tablet 40 mg PO DAILY warfarin 2.5 mg tablet PO Rx Instructions: 1.5 tablets (3.75 mg) on Mondays and 1 tablet (2.5 mg) all other days directed by Cardiology eplerenone 50 mg tablet 100 mg PO DAILY Referrals: Fidel Emanuel, [Primary Care Provider, Family Practice] Stand Alone Forms: Patient Portal/API
[2024-10-19] MEDS: TET,DIPH,PERTUSS(ACELL),VAC/PF 0.5 ML SYRINGE IM (19:10)
[2024-10-19] MEDS: BACITRACIN OINT 0.9 GM PCKT 1 APPLIC TOP (19:10)
[2024-10-19 19:15] VITALS: BP 130/77; PULSE 60; RESP 16; TEMP 36.8; O2SAT 97
== END 2024-10-19 19:20 | disposition home or self-care (01) ==
PROVIDERS: Emergency Provider Physician Assistant; PCP Family Medicine
DX: S63.92XA Sprain of unspecified part of left wrist and hand, initial encounter (principal); S66.912A Strain of unspecified muscle, fascia and tendon at wrist and hand level, left hand, initial encounter; S80.812A Abrasion, left lower leg, initial encounter; S50.312A Abrasion of left elbow, initial encounter; W01.0XXA Fall on same level from slipping, tripping and stumbling without subsequent striking against object, initial encounter; Z23 Encounter for immunization
CPT/HCPCS: 73130; 90471; 99283; 90715

== ENCOUNTER → 2025-04-01 09:08 | Outpatient (CLI) | payer MEDICARE, SELFPAY ==
[2025-04-01 10:31] LABS: Add Manual Diff / Slide Review NO; Hematocrit 40.5 % (41-53); Hemoglobin 14.3 g/dL (13.5-17.5); Lymphocytes Absolute Auto 1300 /uL (1100-4500); Mean Corpuscular HGB Conc 35.3 % (30-36); Mean Corpuscular Hemoglobin 29.7 PG (26-34); Mean Corpuscular Volume 84.3 fL (80-100); Platelet Count 134 X10^3/uL (150-400)
[2025-04-01 10:59] LABS: Alanine Aminotransferase 17 IU/L (<50); Albumin 3.9 g/dL (3.5-5.0); Albumin Globulin Ratio 1.6 (1.0-2.8); Alkaline Phosphatase 93 U/L (38-126); Blood Urea Nitrogen 9 mg/dL (9-20); Calcium 8.5 mg/dL (8.4-10.2); Carbon Dioxide 27 mmol/L (22-32); Chloride 106 mmol/L (98-107); Cholesterol 142 mg/dL (140-199); Estimated Glomerular Filt Rate > 60 mL/min (>60); Globulin 2.4 g/dL (1.7-4.1); Glucose 108 mg/dL (70-99); HDL Cholesterol 37 mg/dL (40-60); HEMOLYSIS < 15 (0-50); Potassium 3.5 mmol/L (3.4-5.1); Sodium 139 mmol/L (137-145); Total Protein 6.3 g/dL (6.3-8.2); Triglycerides 109 mg/dL (35-150)
[2025-04-01 11:08] LABS: NT-proBNP (BNP-Adult 18+) 748 pg/mL (<125)
[2025-04-01 11:13] LABS: Free T4, Direct Thyroxine 2.09 ng/dL (0.78-2.19)
[2025-04-01 11:27] LABS: TSH w/ Reflex to FT4 < 0.02 uIU/mL (0.47-4.68)
== END ==
PROVIDERS: PCP Family Medicine; Referring Provider Internal Medicine Cardiovascular Disease; Visit Provider Internal Medicine Cardiovascular Disease
DX: Z00.00 Encounter for general adult medical examination without abnormal findings (principal); I10 Essential (primary) hypertension; D69.6 Thrombocytopenia, unspecified; I38 Endocarditis, valve unspecified; I48.91 Unspecified atrial fibrillation
CPT/HCPCS: 36415; 80053; 80061; 83880; 84439; 84443; 85025